=== PATIENT | male | born 1965 | race Hispanic/Latino ===

== ENCOUNTER 2024-03-07 02:24 | Emergency (ER) | payer SELFPAY ==
--- OUTSIDE RECORDS SUMMARY | 2024-03-07 02:30 | XMS REPORT | Continuity of Care Document ---
Author Name Unknown Address [address] [facility] [address] [place] [address] [facility] thconnect Address [address] [facility] 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 Ordering Clinician Indication Dosage Frequency Signature (SIG) Comments Components Source TAKE 1 TABLET DAILY. 2022-03 0-20 00:00: 00 Yes 137 Luis Mims TAKE 1 TABLET BID NEEDED 5-15 00:00: 00 07-13 00:00 :00 No 600 Luis Mims TAKE 1 TABLET DAILY. 5-15 00:00: 00 07-13 00:00 :00 No 20 Luis Mims TAKE 1 TABLET DAILY. -23 00:00: 00 07-13 00:00 :00 No 137 Luis Mims Dose Unknown 1-18 00:00: 00 Yes Luis Mims TAKE 1 TABLET DAILY. 10-08 00:00: 00 Yes 10 Luis Mims TAKE 1 TABLET BY MOUTH THREE TIMES DAILY NEEDED FOR 10 DAYS ABDOMINAL CRAMPING - 00:00: 00 Yes Luis Mims TAKE 1 TABLET BY MOUTH ONCE DAILY FOR 30 DAYS 07-10 00:00: 00 Yes Luis Mims levothyroxi ne 137 mcg tablet - 00:00: 00 Yes 1mcg Luis Mims levothyroxi ne 137 mcg tablet - 00:00: 00 No 1mcg levothyroxi ne 13 mcg capsule -25 00:00: 00 Yes 1mcg Luis Mims levothyroxi ne 13 mcg capsule 0 425 00:00: 00 No 1mcg Dose Unknown 0 3-05 00:00: 00 Yes Luis Mims Dose Unknown 0 3-05 00:00: 00 Yes Luis Mims Dose Unknown 0 3-05 00:00: 00 Yes Luis Mims Dose Unknown 0 3-05 00:00: 00 No Dose Unknown 0 3-05 00:00: 00 No Dose Unknown 0 3-05 00:00: 00 No levothyroxi ne 125 mcg tablet 0 2 00:00: 00 Yes 1mcg Luis Mims levothyroxi ne 13 mcg capsule 0 05-13 00:00: 00 Yes 1mcg Luis Mims levothyroxi ne 125 mcg tablet 0 2 00:00: 00 No 1mcg levothyroxi ne 13 mcg capsule 0 05-13 00:00: 00 No 1mcg levothyroxi ne 125 mcg tablet 0 05-07 00:00: 00 Yes 1mcg Luis Mims TAKE 1 TABLET BY MOUTH ONCE DAILY IN THE MORNING ON AN EMPTY STOMACH 1 HOUR BEFORE BREAKFAST 0 05-07 00:00: 00 Yes Luis Mims levothyroxi ne 125 mcg tablet 0 05-07 00:00: 00 No 1mcg levothyroxi ne 125 mcg tablet 2020-03 0- 00:00: 00 Yes 1mcg Luis Mims levothyroxi ne 125 mcg tablet 2020-03 0- 00:00: 00 No 1mcg hydroxyzine HCl 50 mg tablet 0 07-11 00:00: 00 Yes 1mg Luis Mims levothyroxi ne 125 mcg tablet 0 07-11 00:00: 00 Yes 1mcg Luis Mims hydroxyzine HCl 50 mg tablet 07-11 00:00: 00 No 1mg levothyroxi ne 125 mcg tablet 0 07-11 00:00: 00 No 1mcg levothyroxi ne 125 mcg tablet 2019-03 2- 00:00: 00 Yes 1mcg Luis Mims levothyroxi ne 125 mcg tablet 2019-03 2- 00:00: 00 No 1mcg levothyroxi ne 125 mcg tablet 0 11-16 00:00: 00 Yes 1mcg Luis Mims levothyroxi ne 125 mcg tablet 11-16 00:00: 00 No 1mcg levothyroxi ne 125 mcg tablet 09-22 00:00: 00 Yes 1mcg Luis Mims levothyroxi ne 125 mcg tablet 09-22 00:00: 00 No 1mcg levothyroxi ne 125 mcg tablet 06-07 00:00: 00 Yes 1mcg Luis Mims levothyroxi ne 125 mcg tablet 06-07 00:00: 00 No 1mcg levothyroxi ne 125 mcg tablet 05-11 00:00: 00 Yes 1mcg Luis Mims levothyroxi ne 125 mcg tablet 05-11 00:00: 00 No 1mcg cholecalcif ciara (vitamin D3) 1,250 mcg (50,000 unit) tablet 04-13 00:00: 00 Yes 1(50,00 0 unit) Luis Mims levothyroxi ne 137 mcg tablet 04-13 00:00: 00 Yes 1mcg Luis Mims cholecalcif ciara (vitamin D3) 1,250 mcg (50,000 unit) tablet 04-13 00:00: 00 No 1(50,00 0 unit) levothyroxi ne 137 mcg tablet 04-13 00:00: 00 No 1mcg levothyroxi ne 150 mcg tablet 2018-03 00:00: 00 Yes 1mcg Luis Mims levothyroxi ne 150 mcg tablet 2018-03 00:00: 00 No 1mcg levothyroxi ne 150 mcg tablet 2018-03 00:00: 00 Yes 1mcg Luis Mims levothyroxi ne 150 mcg tablet 2018-03 0 00:00: 00 No 1mcg levothyroxi ne 150 mcg tablet 09-15 00:00: 00 Yes 1mcg Luis Mims Vitamin D2 1,250 mcg (50,000 unit) capsule 09-15 00:00: 00 Yes 1(50,00 0 unit) Luis Mims levothyroxi ne 150 mcg tablet 09-15 00:00: 00 No 1mcg Vitamin D2 1,250 mcg (50,000 unit) capsule 09-15 00:00: 00 No 1(50,00 0 unit) hydrochloro thiazide 12.5 mg tablet 05-24 00:00: 00 Yes 1mg Luis Mims hydrochloro thiazide 12.5 mg tablet 05-24 00:00: 00 No 1mg levothyroxi ne 125 mcg tablet 05-19 00:00: 00 Yes 1mcg Luis Mims levothyroxi ne 125 mcg tablet 05-19 00:00: 00 No 1mcg cyclobenzap rine 10 mg tablet 04-09 00:00: 00 Yes 1mg Luis Mims cyclobenzap rine 10 mg tablet 04-09 00:00: 00 No 1mg levothyroxi ne 125 mcg tablet 2017-03 00:00: 00 Yes 1mcg Luis Mims levothyroxi ne 125 mcg tablet 2017-03 00:00: 00 No 1mcg levothyroxi ne 125 mcg tablet 11-23 00:00: 00 Yes 1mcg Luis Mims levothyroxi ne 125 mcg tablet 11-23 00:00: 00 No 1mcg levothyroxi ne 125 mcg tablet 10-26 00:00: 00 Yes 1mcg Luis Mims levothyroxi ne 125 mcg tablet 10-26 00:00: 00 No 1mcg prednisone 5 mg tablet 08-27 00:00: 00 Yes 1mg Luis Mims cyclobenzap rine 10 mg tablet 08-27 00:00: 00 Yes 1mg Luis Mims levothyroxi ne 125 mcg tablet 08-27 00:00: 00 Yes 1mcg Luis Mims prednisone 5 mg tablet 08-27 00:00: 00 No 1mg cyclobenzap rine 10 mg tablet 08-27 00:00: 00 No 1mg levothyroxi ne 125 mcg tablet 08-27 00:00: 00 No 1mcg levothyroxi ne 125 mcg tablet 06-02 00:00: 00 Yes 1mcg Luis Mims levothyroxi ne 125 mcg tablet 06-02 00:00: 00 No 1mcg prednisone 5 mg tablet 05-29 00:00: 00 Yes 1mg Luis Mims prednisone 5 mg tablet 05-29 00:00: 00 No 1mg levothyroxi ne 112 mcg tablet 05-14 00:00: 00 Yes 1mcg Luis Mims levothyroxi ne 112 mcg tablet 05-14 00:00: 00 No 1mcg levothyroxi ne 112 mcg tablet 05-12 00:00: 00 Yes 1mcg Luis Mims levothyroxi ne 112 mcg tablet 05-12 00:00: 00 No 1mcg ibuprofen 800 mg tablet 05-11 00:00: 00 Yes 1mg Luis Mims cyclobenzap rine 10 mg tablet 05-11 00:00: 00 Yes 1mg Luis Mims tramadol 50 mg tablet 05-11 00:00: 00 Yes 1mg Luis Mims ibuprofen 800 mg tablet 05-11 00:00: 00 No 1mg cyclobenzap rine 10 mg tablet 05-11 00:00: 00 No 1mg tramadol 50 mg tablet 05-11 00:00: 00 No 1mg levothyroxi ne 112 mcg tablet 03-20 00:00: 00 Yes 1mcg Luis Mims levothyroxi ne 112 mcg tablet 03-20 00:00: 00 No 1mcg levothyroxi ne 100 mcg tablet 2016-03 00:00: 00 Yes 1mcg Luis Mims levothyroxi ne 100 mcg tablet 2016-03 00:00: 00 No 1mcg levothyroxi ne 50 mcg tablet 2016-03 00:00: 00 Yes 1mcg Luis Mims levothyroxi ne 50 mcg tablet 2016-03 00:00: 00 No 1mcg levothyroxi ne 150 mcg tablet 2016-03 00:00: 00 Yes 1mcg Luis Mims levothyroxi ne 150 mcg tablet 2016-03 00:00: 00 No 1mcg levothyroxi ne 150 mcg tablet 08-28 00:00: 00 Yes 1mcg Luis Mims levothyroxi ne 150 mcg tablet 08-28 00:00: 00 No 1mcg levothyroxi ne 150 mcg tablet 07-18 00:00: 00 Yes 1mcg Luis Mims levothyroxi ne 150 mcg tablet 07-18 00:00: 00 No 1mcg levothyroxi ne 175 mcg tablet 04-14 00:00: 00 Yes 1mcg Luis Mims levothyroxi ne 175 mcg tablet 04-14 00:00: 00 No 1mcg levothyroxi ne 200 mcg tablet 2015-03 00:00: 00 Yes 1mcg Luis Mims levothyroxi ne 200 mcg tablet 2015-03 00:00: 00 No 1mcg levothyroxi ne 175 mcg tablet 2015-03 00:00: 00 Yes 1mcg Luis Mims levothyroxi ne 175 mcg tablet 2015-03 00:00: 00 No 1mcg levothyroxi ne 175 mcg tablet 10-06 00:00: 00 Yes 1mcg Luis Mims levothyroxi ne 175 mcg tablet 10-06 00:00: 00 No 1mcg levothyroxi ne 150 mcg tablet 10-01 00:00: 00 Yes 1mcg Luis Mims levothyroxi ne 150 mcg tablet 10-01 00:00: 00 No 1mcg levothyroxi ne 100 mcg tablet 06-14 00:00: 00 Yes 1mcg Luis Mims levothyroxi ne 100 mcg tablet 06-14 00:00: 00 No 1mcg levothyroxi ne 100 mcg tablet 11-01 00:00: 00 Yes 1mcg Luis Mims levothyroxi ne 100 mcg tablet 11-01 00:00: 00 No 1mcg Immunizations Ordered Immunization Name Filled Immunization Name Date Status Comments Source Tdap Tdap 2017-01-06 00:00:00 Completed Luis Mims Influenza, seasonal, inj Influenza, seasonal, inj 2017-01-06 00:00:00 Completed Luis Winnie Mims Tdap 2017-01-06 00:00:00 Completed Influenza, seasonal, inj 2017-01-06 00:00:00 Completed Vital Signs Vital Name Observation Time Observation Value Comments S ource BP Diastolic 2023-07-14 10:39:00 87 mm[Hg] Adilson phen F Prasanna Weight Measured 2023-07-14 10:39:00 156.20 pounds Luis F Prasanna Height Measured 2023-07-14 10:39:00 64.00 inches Luis F Prasanna Body Temperature 2023-07-14 10:39:00 98.00 degrees Luis F Prasanna Heart Rate 2023-07-14 10:39:00 77.00 /min Radha en F Prasanna Respiratory Rate 2023-07-14 10:39:00 18.00 /min Luis F Prasanna BP Systolic 2023-07-14 10:39:00 137 mm[Hg] Step hen F Prasanna BP Systolic 2023-04-06 14:56:00 149 mm[Hg] Step hen F Prasanna BP Diastolic 2023-04-06 14:56:00 103 mm[Hg] Adilson phen F Prasanna Weight Measured 2023-04-06 14:56:00 153.40 pounds Luis F Prasanna Height Measured 2023-04-06 14:56:00 64.00 inches Luis F Prasanna Body Temperature 2023-04-06 14:56:00 98.20 degrees Luis F Prasanna Heart Rate 2023-04-06 14:56:00 81.00 /min Radha en F Prasanna Respiratory Rate 2023-04-06 14:56:00 19.00 /min Luis F Prasanna BP Systolic 2023-01-01 13:29:00 140 mm[Hg] Step hen F Prasanna BP Diastolic 2023-01-01 13:29:00 85 mm[Hg] Adilson phen F Prasanna Weight Measured 2023-01-01 13:29:00 150.40 pounds Luis F Prasanna Height Measured 2023-01-01 13:29:00 64.00 inches Luis F Prasanna Body Temperature 2023-01-01 13:29:00 98.20 degrees Luis F Prasanna Heart Rate 2023-01-01 13:29:00 86.00 /min Radha en F Prasanna Respiratory Rate 2023-01-01 13:29:00 19.00 /min Luis F Prasanna BP Systolic 2022-07-28 15:39:00 153 mm[Hg] Step hen F Prasanna BP Diastolic 2022-07-28 15:39:00 95 mm[Hg] Adilson phen F Prasanna Weight Measured 2022-07-28 15:39:00 153.60 pounds Luis F Prasanna Height Measured 2022-07-28 15:39:00 64.00 inches Luis F Prasanna Body Temperature 2022-07-28 15:39:00 98.10 degrees Luis F Prasanna Heart Rate 2022-07-28 15:39:00 76.00 /min Radha en F Prasanna Respiratory Rate 2022-07-28 15:39:00 18.00 /min Luis F Prasanna BP Systolic 2022-07-28 14:52:00 153 mm[Hg] Step hen F Prasanna BP Diastolic 2022-07-28 14:52:00 95 mm[Hg] Adilson phen F Prasanna Weight Measured 2022-07-28 14:52:00 153.60 pounds Luis F Prasanna Height Measured 2022-07-28 14:52:00 64.00 inches Luis F Prasanna Body Temperature 2022-07-28 14:52:00 98.10 degrees Luis F Prasanna Heart Rate 2022-07-28 14:52:00 76.00 /min Radha en F Prasanna Respiratory Rate 2022-07-28 14:52:00 18.00 /min Luis F Prasanna BP Systolic 2022-04-04 15:58:00 161 mm[Hg] Step hen F Prasanna BP Diastolic 2022-04-04 15:58:00 103 mm[Hg] Adilson phen F Prasanna Weight Measured 2022-04-04 15:58:00 158.60 pounds Luis F Prasanna Height Measured 2022-04-04 15:58:00 64.00 inches Luis F Prasanna Body Temperature 2022-04-04 15:58:00 98.80 degrees Luis F Prasanna Heart Rate 2022-04-04 15:58:00 83.00 /min Radha en F Prasanna Respiratory Rate 2022-04-04 15:58:00 18.00 /min Luis F Prasanna BP Systolic 2021 15:36:00 153 mm[Hg] Step hen F Prasanna BP Diastolic 2021 15:36:00 97 mm[Hg] Adilson phen F Prasanna Weight Measured 2021 15:36:00 153.20 pounds Luis F Prasanna Height Measured 2021 15:36:00 64.00 inches Luis F Prasanna Body Temperature 2021 15:36:00 98.20 degrees Luis F Prasanna Heart Rate 2021 15:36:00 83.00 /min Radha en F Prasanna Respiratory Rate 2021 15:36:00 Luis F Prasanna BP Systolic 2021-07-04 17:03:00 145 mm[Hg] Step hen F Prasanna BP Diastolic 2021-07-04 17:03:00 94 mm[Hg] Adilson phen F Prasanna Weight Measured 2021-07-04 17:03:00 154.00 pounds Luis F Prasanna Height Measured 2021-07-04 17:03:00 64.00 inches Luis F Prasanna Body Temperature 2021-07-04 17:03:00 98.10 degrees Luis F Prasanna Heart Rate 2021-07-04 17:03:00 74.00 /min Radha en F Prasanna Respiratory Rate 2021-07-04 17:03:00 16.00 /min Luis F Prasanna BP Systolic 2021-05-07 17:38:00 137 mm[Hg] Step hen F Prasanna BP Diastolic 2021-05-07 17:38:00 94 mm[Hg] Adilson phen F Prasanna Weight Measured 2021-05-07 17:38:00 151.60 pounds Luis F Prasanna Height Measured 2021-05-07 17:38:00 64.00 inches Luis F Prasanna Body Temperature 2021-05-07 17:38:00 98.70 degrees Luis F Prasanna Heart Rate 2021-05-07 17:38:00 78.00 /min Radha en F Prasanna Respiratory Rate 2021-05-07 17:38:00 16.00 /min Luis F Prasanna BP Systolic 2021-01-09 16:10:00 139 mm[Hg] Step hen F Prasanna BP Diastolic 2021-01-09 16:10:00 86 mm[Hg] Adilson phen F Prasanna Weight Measured 2021-01-09 16:10:00 148.00 pounds Luisjosh Mims Height Measured 2021-01-09 16:10:00 64.00 inches Luis F Prasanna Body Temperature 2021-01-09 16:10:00 98.20 degrees Luis F Prasanna Heart Rate 2021-01-09 16:10:00 72.00 /min Radha en F Prasanna Respiratory Rate 2021-01-09 16:10:00 16.00 /min Luis F Prasanna BP Systolic 2021-01-08 16:03:00 134 mm[Hg] BP Diastolic 2021-01-08 16:03:00 91 mm[Hg] Weight Measured 2021-01-08 16:03:00 146.40 pounds Height Measured 2021-01-08 16:03:00 64.00 inches Body Temperature 2021-01-08 16:03:00 98.10 degrees Heart Rate 2021-01-08 16:03:00 78.00 /min Respiratory Rate 2021-01-08 16:03:00 16.00 /min BP Systolic 2020-07-11 15:03:00 145 mm[Hg] BP Diastolic 2020-07-11 15:03:00 96 mm[Hg] Weight Measured 2020-07-11 15:03:00 152.40 pounds Height Measured 2020-07-11 15:03:00 64.00 inches Body Temperature 2020-07-11 15:03:00 98.60 degrees Heart Rate 2020-07-11 15:03:00 85.00 /min Respiratory Rate 2020-07-11 15:03:00 17.00 /min BP Systolic 2020-02-22 08:08:00 122 mm[Hg] BP Diastolic 2020-02-22 08:08:00 86 mm[Hg] Weight Measured 2020-02-22 08:08:00 150.20 pounds Height Measured 2020-02-22 08:08:00 64.00 inches Body Temperature 2020-02-22 08:08:00 98.30 degrees Heart Rate 2020-02-22 08:08:00 73.00 /min Respiratory Rate 2020-02-22 08:08:00 16.00 /min BP Systolic 2019-11-15 16:33:00 127 mm[Hg] BP Diastolic 2019-11-15 16:33:00 82 mm[Hg] Weight Measured 2019-11-15 16:33:00 145.40 pounds Height Measured 2019-11-15 16:33:00 64.00 inches Body Temperature 2019-11-15 16:33:00 97.90 degrees Heart Rate 2019-11-15 16:33:00 79.00 /min Respiratory Rate 2019-11-15 16:33:00 16.00 /min BP Systolic 2019-09-23 08:16:00 115 mm[Hg] BP Diastolic 2019-09-23 08:16:00 78 mm[Hg] Weight Measured 2019-09-23 08:16:00 141.40 pounds Height Measured 2019-09-23 08:16:00 64.00 inches Body Temperature 2019-09-23 08:16:00 98.20 degrees Heart Rate 2019-09-23 08:16:00 72.00 /min Respiratory Rate 2019-09-23 08:16:00 16.00 /min BP Systolic 2019-05-10 15:12:00 121 mm[Hg] BP Diastolic 2019-05-10 15:12:00 79 mm[Hg] Weight Measured 2019-05-10 15:12:00 140.40 pounds Height Measured 2019-05-10 15:12:00 64.00 inches Body Temperature 2019-05-10 15:12:00 97.90 degrees Heart Rate 2019-05-10 15:12:00 78.00 /min Respiratory Rate 2019-05-10 15:12:00 Procedures Procedure Date / Time Performed Performing Clinicia n Source Ekg 2018-05-17 00:00:00 Luis Mims Plan of Care Planned Activity Planned Date Details Comments Source Goal Plan of Care Note [code = 46701-4] Goal Plan of Care Note [code = 13468-6] Goal Plan of Care Note [code = 19974-4] Goal Plan of Care Note [code = 87093-2] Goal Plan of Care Note [code = 83513-7] Goal Plan of Care Note [code = 95815-6] Goal Plan of Care Note [code = 46601-9] Goal Plan of Care Note [code = 41856-8] Goal Plan of Care Note [code = 10280-5] Goal Plan of Care Note [code = 61751-3] Goal Plan of Care Note [code = 70640-7] Goal Plan of Care Note [code = 09056-9] Goal Plan of Care Note [code = 55852-3] Goal Plan of Care Note [code = 60374-5] Goal Plan of Care Note [code = 81961-8] Goal Plan of Care Note [code = 36524-1] Goal Plan of Care Note [code = 95108-3] Goal Plan of Care Note [code = 53242-6] Goal Plan of Care Note [code = 33153-9] Goal Plan of Care Note [code = 12352-8] Goal Plan of Care Note [code = 39643-3] Goal Plan of Care Note [code = 88159-1] Goal Plan of Care Note [code = 98491-2] Goal Plan of Care Note [code = 88666-8] Goal Plan of Care Note [code = 08613-5] Goal Plan of Care Note [code = 97607-2] Goal Plan of Care Note [code = 60909-0] Goal Plan of Care Note [code = 57635-6] Goal Plan of Care Note [code = 78236-0] Encounters Start Date/Time End Date/Time Encounter Type Admission Type Attending [facility] Facility Care Department Encounter ID Source 2024-01-05 11:03:56 2024-01-05 11:03:56 Outpatient [facility] [id number] Luis F Prasanna 2023-07-14 10:38:10 2023-07-14 10:38:10 Outpatient [facility] [id number] Luis F Prasanna 2023-07-14 00:00:00 2023-07-14 00:00:00 Outpatient Visit [facility] [id number] Luis Zhou Prasanna 2023-04-06 14:55:51 2023-04-06 14:55:51 Outpatient [facility] [id number] Luis Winnie Prasanna 2023-01-01 13:25:16 2023-01-01 13:25:16 Outpatient [facility] [id number] Luis Winnie Mims 2022-08-11 13:16:05 2022-08-11 13:16:05 Outpatient [facility] [id number] Luis Mims 2022-08-04 13:34:18 2022-08-04 13:34:18 Outpatient [facility] [id number] Luis Mims 2022-07-28 14:51:14 2022-07-28 14:51:14 Outpatient [facility] [id number] Luis Mims 2022-04-04 15:50:35 2022-04-04 15:50:35 Outpatient [facility] [id number] Luis Mims 2021 00:00:00 2021 00:00:00 Outpatient Visit [id number] Results Test Description Test Time Test Comments Results Result Co mments Source Occult Blood, Fecal, [id number] 00:00:00* Test Item Value Reference Range Interpretation Comme nts Occult Blood, Fecal, [place] (jose t code = 29149-0) TNP Luis MimsTSH, THIRD [id number] 05:17:35* Test Item Value Reference Range Interpretation Comme nts TSH, THIRD GENERATION (test code = 2821) 0.847 UIU/ML 0.400-4.100 UNLESS OTHERWISE INDICATED, ALL TESTING PERFORMED AT [facility] [employer] [address] [place], [place] [address] DOG HAIR CLIPPER: TYLER BYRNES M.D. CLIA NUMBER [id number] [facility] [place]. [id number] TSH, THIRD [id number] 00:00:00* Test Item Value Reference Range Interpretation Comme nts TSH, THIRD GENERATION (test code = 2821) 0.847 UIU/ML Luis MimsHEMOGLOBIN [id number] 02:51:38* Test Item Value Reference Range Interpretation Comme nts HEMOGLOBIN A1c (test code = 42462) 5.5 % 4.2-5.6 UNLESS OTHERWISE INDICATED, ALL TESTING PERFORMED AT [facility] [employer] [address] [place], [place] [address] DOG HAIR CLIPPER: TYLER BYRNES M.D. CLIA NUMBER [id number] [facility] [place] [place]. [id number] HEMOGLOBIN [id number] 00:00:00* Test Item Value Reference Range Interpretation Comme [facility] HEMOGLOBIN A1c (test code = 25810) 5.5 % Luis MimsFOLIC [id number] 00:00:00* Test Item Value Reference Range Interpretation Comme [facility] FOLIC ACID (test code = 2695) 9.0 UG/L Luis MimsCOMPREHENSIVE METABOLIC [id number] 00:00:00* Test Item Value Reference Range Interpretation Comme nts GLUCOSE (test code = 2217) 112 MG/DL BUN (test code = 2208) 10 MG/DL CREATININE (test code = 2214) 1.16 MG/DL eGFR (2020 CKD-EPI) (test co de = 08460) 73 ML/MIN/1.73 CALC BUN/CREAT (test code = 2235) 9 RATIO SODIUM (test code = 2231) 138 MEQ/L POTASSIUM (test code = 2228) 4.1 MEQ/L CHLORIDE (test code = 2215) 100 MEQ/L CARBON DIOXIDE (test code = 2206) 20 MEQ/L CALCIUM (test code = 2209) 9.7 MG/DL PROTEIN, TOTAL (test code = 2229) 7.3 G/DL ALBUMIN (test code = 2201) 4.8 G/DL CALC GLOBULIN (test code = 2240) 2.5 G/DL CALC A/G RATIO (test code = 2234) 1.9 RATIO BILIRUBIN, TOTAL (test code = 2207) 0.4 MG/DL ALKALINE PHOSPHATASE (test code = 2204) 103 U/L AST (test code = 2218) 31 U/L ALT (test code = 2219) 37 U/L Luis MimsVITAMIN D, 25 [id number] 00:00:00* Test Item Value Reference Range Interpretation Comme [facility] VITAMIN D, 25 OH (test code = 4958) 29 NG/ML Luis MimsVITAMIN [id number] 00:00:00* Test Item Value Reference Range Interpretation Comme [facility] VITAMIN B-12 (test code = 2840) 248 PG/ML Luis MimsCBC W/AUTO [id number] 00:00:00* Test Item Value Reference Range Interpretation Comme nts WBC (test code = 1001) 5.6 K/UL RBC (test code = 1002) 4.82 M/UL HEMOGLOBIN (test code = 1003) 16.5 G/DL HEMATOCRIT (test code = 1004) 46.4 % MCV (test code = 1005) 96.3 fL MCH (test code = 1006) 34.2 PG MCHC (test code = 1007) 35.6 G/DL RDW (test code = 1038) 12.5 % NEUTROPHILS (test code = 1008) 46.6 % LYMPHOCYTES (test code = 1010) 40.9 % MONOCYTES (test code = 1011) 10.9 % EOSINOPHILS (test code = 1012) 0.7 % BASOPHILS (test code = 1013) 0.5 % IMMATURE GRANULOCYTES (test code = 1036) 0.4 % NUCLEATED RBCS (test code = 1065) 0.0 /100WBC'S PLATELET COUNT (test code = 1015) 231 K/UL ABSOLUTE NEUTROPHILS (test c ode = 1066) 2.61 K/UL ABSOLUTE LYMPHOCYTES (test c ode = 1067) 2.29 K/UL ABSOLUTE MONOCYTES (test cod e = 1068) 0.61 K/UL ABSOLUTE EOSINOPHILS (test c ode = 1040) 0.04 K/UL ABSOLUTE BASOPHILS (test cod e = 1069) 0.03 K/UL ABS IMMATURE GRANULOCYTES (t est code = 1020) 0.02 K/UL ABS NUCLEATED RBCS (test cod e = 93283) 0.00 K/UL Luis Rodriguez, THIRD [id number] 00:00:00* Test Item Value Reference Range Interpretation Comme nts TSH, THIRD GENERATION (test code = 2821) 1.500 UIU/ML Luis Rodriguez, THIRD [id number] 01:37:52* Test Item Value Reference Range Interpretation Comme nts TSH, THIRD GENERATION (test code = 2821) 1.760 UIU/ML 0.400-4.100 UNLESS OTHERWISE INDICATED, [facility] [address] [place] [id number] DOG HAIR CLIPPER: SASHA FAYE M.D. CLIA NUMBER [id number] [facility] [place]. [id number] COMPREHENSIVE METABOLIC [id number] 00:59:30* Test Item Value Reference Range Interpretation Comme nts GLUCOSE (test code = 2216) 68 MG/DL 70-99 L BUN (test code = 2207) 13 MG/DL 6-20 CREATININE (test code = 2214) 1.39 MG/DL 0.80-1.40 eGFR (2020 CKD-EPI) (test code = 01846) 59 ML/MIN/1.73 >60 L The NKF-ASN Taskforce recommends use of Cystatin C to confirm eGFR inadults at risk for CKD. [facility] offers eGFR with Cystatin C-Creatinineusing the 2020 CKD-EPI eGFR_creat-cystat equation (order code 3057) toincrease the accuracy of estimated GFR. For more information, contactyour accounting specialist or see announcement [email or web address] CALC BUN/CREAT (test code = 2234) 9 RATIO 6-28 SODIUM (test code = 2230) 139 MEQ/L 133-146 POTASSIUM (test code = 8) 4.3 MEQ/L 3.5-5.4 CHLORIDE (test code = 2215) 102 MEQ/L 95-107 CARBON DIOXIDE (test code = 6) 22 MEQ/L 19-31 CALCIUM (test code = 2209) 9.9 MG/DL 8.5-10.5 PROTEIN, TOTAL (test code = 222) 7.7 G/DL 6.1-8.3 ALBUMIN (test code = 2200) 4.6 G/DL 3.5-5.2 CALC GLOBULIN (test code = 2240) 3.1 G/DL 1.9-3.7 CALC A/G RATIO (test code = 223) 1.5 RATIO 1.0-2.6 BILIRUBIN, TOTAL (test code = 220) 0.6 MG/DL See_Comment [Automated me ssage] The system which generated this result transmitted reference range: <=1.2. The reference range was not used to interpret this result as normal/abnormal. ALKALINE PHOSPHATASE (test code = 4) 95 U/L 40-123 AST (test code = 2218) 31 U/L 9-50 ALT (test code = 2219) 38 U/L 5-50 LIPID [id number] 00:59:30* Test Item Value Reference Range Interpretation Comme nts CHOLESTEROL (test code = 2210) 213 MG/DL <200 H TRIGLYCERIDES (test code = 2232) 132 MG/DL <150 HDL CHOLESTEROL (test code = 2220) 49 MG/DL >39 CALC LDL CHOL (test code = 2237) 138 MG/DL <100 H NOTE: CALCULATED LDL IS BASED ON VARSHA-CHRISTIAN METHOD WHICHINCLUDES ADJUSTABLE TRIGLYCERIDE:VLDL CHOLESTEROL RATIO.THIS FACTOR VARIES BY MEASURED TRIGLYCERIDE AND NON-HDLCHOLESTEROL CONCENTRATIONS WITH INCREASED CALCULATED LDL SEENIN HIGHER TRIGLYCERIDE OR LOWER NON-HDL SPECIMENS. FOR MOREINFORMATION, SEE CLIENT ANNOUNCEMENT AT [email or web address] RATIO LDL/HDL (test code = 2238) 2.82 RATIO <3.55 COMPREHENSIVE METABOLIC [id number] 00:00:00* Test Item Value Reference Range Interpretation Comme nts GLUCOSE (test code = 2217) 68 MG/DL BUN (test code = 2208) 13 MG/DL CREATININE (test code = 2214) 1.39 MG/DL eGFR (2020 CKD-EPI) (test co de = 63805) 59 ML/MIN/1.73 CALC BUN/CREAT (test code = 2235) 9 RATIO SODIUM (test code = 2231) 139 MEQ/L POTASSIUM (test code = 2228) 4.3 MEQ/L CHLORIDE (test code = 2215) 102 MEQ/L CARBON DIOXIDE (test code = 2206) 22 MEQ/L CALCIUM (test code = 2209) 9.9 MG/DL PROTEIN, TOTAL (test code = 2229) 7.7 G/DL ALBUMIN (test code = 2201) 4.6 G/DL CALC GLOBULIN (test code = 2240) 3.1 G/DL CALC A/G RATIO (test code = 2234) 1.5 RATIO BILIRUBIN, TOTAL (test code = 2207) 0.6 MG/DL ALKALINE PHOSPHATASE (test code = 2204) 95 U/L AST (test code = 2218) 31 U/L ALT (test code = 2219) 38 U/L Luis Winnie AustinLIPID [id number] 00:00:00* Test Item Value Reference Range Interpretation Comme nts CHOLESTEROL (test code = 2210) 213 MG/DL TRIGLYCERIDES (test code = 2232) 132 MG/DL HDL CHOLESTEROL (test code = 2220) 49 MG/DL CALC LDL CHOL (test code = 2237) 138 MG/DL RISK RATIO LDL/HDL (test cod e = 2238) 2.82 RATIO MAHAD Gayle [id number] 00:00:00* Test Item Value Reference Range Interpretation Comme nts TSH, THIRD GENERATION (test code = 2821) 1.760 UIU/ML Luis MimsHIV 1/2 4TH GEN, RFLX [id number] 03:44:39* Test Item Value Reference Range Interpretation Comme nts HIV 1/2 4TH GEN, RFLX CONF ( test code = 3514) NON-REACTIVE NON-REACTIVE HIV AB/AG COMBO RFLX [id number] 00:00:00* Test Item Value Reference Range Interpretation Comme nts HIV 1/2 4TH GEN, RFLX CONF ( test code = 3514) NON-REACTIVE Luis Rodriguez, THIRD [id number] 03:02:16* Test Item Value Reference Range Interpretation Comme nts TSH, THIRD GENERATION (test code = 2821) 2.610 UIU/ML 0.400-4.100 UNLESS OTHERWISE INDICATED, ALL TESTING PERFORMED [facility] [address] [place] [address] DOG HAIR CLIPPER: SASHA FAYE M.D. CLIA NUMBER [id number] [facility] [place]. [id number] LIPID [id number] 01:22:51* Test Item Value Reference Range Interpretation Comme nts CHOLESTEROL (test code = 2210) 233 MG/DL <200 H TRIGLYCERIDES (test code = 2232) 105 MG/DL <150 HDL CHOLESTEROL (test code = 2220) 52 MG/DL >39 CALC LDL CHOL (test code = 2237) 159 MG/DL <100 H NOTE: CALCULATED LDL IS BASED ON VARSHA-CHRISTIAN METHOD WHICHINCLUDES ADJUSTABLE TRIGLYCERIDE:VLDL CHOLESTEROL RATIO.THIS FACTOR VARIES BY MEASURED TRIGLYCERIDE AND NON-HDLCHOLESTEROL CONCENTRATIONS WITH INCREASED CALCULATED LDL SEENIN HIGHER TRIGLYCERIDE OR LOWER NON-HDL SPECIMENS. FOR MOREINFORMATION, SEE CLIENT ANNOUNCEMENT AT [email or web address] RISK RATIO LDL/HDL (test code = 2238) 3.06 RATIO <3.55 LIPID [id number] 00:00:00* Test Item Value Reference Range Interpretation Comme nts CHOLESTEROL (test code = 2210) 233 MG/DL TRIGLYCERIDES (test code = 2232) 105 MG/DL HDL CHOLESTEROL (test code = 2220) 52 MG/DL CALC LDL CHOL (test code = 2237) 159 MG/DL RISK RATIO LDL/HDL (test cod e = 2238) 3.06 RATIO Luis [id number] 00:00:00* Test Item Value Reference Range Interpretation Comme nts TSH, THIRD GENERATION (test code = 2821) 2.610 UIU/ML Luis HernandezH, THIRD [id number] 04:51:38* Test Item Value Reference Range Interpretation Comme nts TSH, THIRD GENERATION (test code = 2821) 3.580 UIU/ML 0.400-4.100 UNLESS OTHERWISE INDICATED, ALL TESTING PERFORMED [facility] [employer] [facility] [address] [place] [address] DOG HAIR CLIPPER: SASHA FAYE M.D. CLIA NUMBER [id number] [place]. [id number] 00:00:00* Test Item Value Reference Range Interpretation Comme nts TSH, THIRD GENERATION (test code = 2821) 3.580 UIU/ML [id number] 00:00:00* Test Item Value Reference Range Interpretation Comme nts TSH, THIRD GENERATION (test code = 2821) 3.580 UIU/ML Luis HernandezH, THIRD [id number] 05:54:58* Test Item Value Reference Range Interpretation Comme nts TSH, THIRD GENERATION (test code = 2821) 5.600 UIU/ML 0.400-4.100 H UNLESS OTHERWISE INDICATED, ALL TESTING PERFORMED [facility] [address] [place] [address] DOG HAIR CLIPPER: SASHA FAYE M.D. CLIA NUMBER [id number] [place]. [id number] 00:00:00* Test Item Value Reference Range Interpretation Comme nts TSH, THIRD GENERATION (test code = 2821) 5.600 UIU/ML [id number] 00:00:00* Test Item Value Reference Range Interpretation Comme nts TSH, THIRD GENERATION (test code = 2821) 5.600 UIU/ML Luis [id number] 00:00:00* Test Item Value Reference Range Interpretation Comme nts TSH, THIRD GENERATION (test code = 2821) 2.100 UIU/ML [id number] 00:00:00* Test Item Value Reference Range Interpretation Comme nts TSH, THIRD GENERATION (test code = 2821) 2.100 UIU/ML Luis HernandezH, THIRD GENERATION [ADDED]2020-07-13 00:00:00* Test Item Value Reference Range Interpretation Comme nts TSH, THIRD GENERATION (test code = 2821) 8.400 UIU/ML TSH, THIRD GENERATION [ADDED]2020-07-13 00:00:00* Test Item Value Reference Range Interpretation Comme nts TSH, THIRD GENERATION (test code = 2821) 8.400 UIU/ML Luis [id number] 00:00:00* Test Item Value Reference Range Interpretation Comme nts TSH, THIRD GENERATION (test code = 2821) 2.860 UIU/ML [id number] 00:00:00* Test Item Value Reference Range Interpretation Comme nts TSH, THIRD GENERATION (test code = 2821) 2.860 UIU/ML Luis MimsCOMPREHENSIVE METABOLIC [id number] 00:00:00* Test Item Value Reference Range Interpretation Comme nts GLUCOSE (test code = 2217) 94 MG/DL BUN (test code = 2208) 14 MG/DL CREATININE (test code = 2214) 0.84 MG/DL eGFR AMER. (test cod e = 74945) 114 ML/MIN/1.73 eGFR NON- AMER. (test code = 90876) 99 ML/MIN/1.73 CALC BUN/CREAT (test code = 2235) 17 RATIO SODIUM (test code = 2231) 140 MEQ/L POTASSIUM (test code = 2228) 4.5 MEQ/L CHLORIDE (test code = 2215) 108 MEQ/L CARBON DIOXIDE (test code = 2206) 24 MEQ/L CALCIUM (test code = 2209) 8.7 MG/DL PROTEIN, TOTAL (test code = 2229) 6.7 G/DL ALBUMIN (test code = 2201) 4.3 G/DL CALC GLOBULIN (test code = 2240) 2.4 G/DL CALC A/G RATIO (test code = 2234) 1.8 RATIO BILIRUBIN, TOTAL (test code = 2207) 0.5 MG/DL ALKALINE PHOSPHATASE (test code = 2204) 90 U/L AST (test code = 2218) 21 U/L ALT (test code = 2219) 26 U/L [id number] 00:00:00* Test Item Value Reference Range Interpretation Comme nts TSH, THIRD GENERATION (test code = 2821) 3.450 UIU/ML VITAMIN D, 25 [id number] 00:00:00* Test Item Value Reference Range Interpretation Comme nts VITAMIN D, 25 OH (test code = 4958) 30 NG/ML VITAMIN B 12 AND FOLIC [id number] 00:00:00* Test Item Value Reference Range Interpretation Comme nts VITAMIN B-12 (test code = 2840) 345 PG/ML FOLIC ACID (test code = 2695) 6.0 UG/L CBC W/AUTO [id number] 00:00:00* Test Item Value Reference Range Interpretation Comme nts WBC (test code = 1001) 6.1 K/UL RBC (test code = 1002) 4.62 M/UL HEMOGLOBIN (test code = 1003) 15.3 G/DL HEMATOCRIT (test code = 1004) 44.1 % MCV (test code = 1005) 95.5 fL MCH (test code = 1006) 33.1 PG MCHC (test code = 1007) 34.7 G/DL RDW (test code = 1038) 13.0 % NEUTROPHILS (test code = 1008) 44.9 % LYMPHOCYTES (test code = 1010) 43.8 % MONOCYTES (test code = 1011) 9.8 % EOSINOPHILS (test code = 1012) 1.0 % BASOPHILS (test code = 1013) 0.5 % PLATELET COUNT (test code = 1015) 198 K/UL CBC W/AUTO [id number] 00:00:00* Test Item Value Reference Range Interpretation Comme nts WBC (test code = 1001) 6.1 K/UL RBC (test code = 1002) 4.62 M/UL HEMOGLOBIN (test code = 1003) 15.3 G/DL HEMATOCRIT (test code = 1004) 44.1 % MCV (test code = 1005) 95.5 fL MCH (test code = 1006) 33.1 PG MCHC (test code = 1007) 34.7 G/DL RDW (test code = 1038) 13.0 % NEUTROPHILS (test code = 1008) 44.9 % LYMPHOCYTES (test code = 1010) 43.8 % MONOCYTES (test code = 1011) 9.8 % EOSINOPHILS (test code = 1012) 1.0 % BASOPHILS (test code = 1013) 0.5 % PLATELET COUNT (test code = 1015) 198 K/UL Luis MimsCOMPREHENSIVE METABOLIC [id number] 00:00:00* Test Item Value Reference Range Interpretation Comme nts GLUCOSE (test code = 2217) 94 MG/DL BUN (test code = 2208) 14 MG/DL CREATININE (test code = 2214) 0.84 MG/DL eGFR AMER. (test cod e = 16382) 114 ML/MIN/1.73 eGFR NON- AMER. (test code = 13428) 99 ML/MIN/1.73 CALC BUN/CREAT (test code = 2235) 17 RATIO SODIUM (test code = 2231) 140 MEQ/L POTASSIUM (test code = 2228) 4.5 MEQ/L CHLORIDE (test code = 2215) 108 MEQ/L CARBON DIOXIDE (test code = 2206) 24 MEQ/L CALCIUM (test code = 2209) 8.7 MG/DL PROTEIN, TOTAL (test code = 2229) 6.7 G/DL ALBUMIN (test code = 2201) 4.3 G/DL CALC GLOBULIN (test code = 2240) 2.4 G/DL CALC A/G RATIO (test code = 2234) 1.8 RATIO BILIRUBIN, TOTAL (test code = 2207) 0.5 MG/DL ALKALINE PHOSPHATASE (test code = 2204) 90 U/L AST (test code = 2218) 21 U/L ALT (test code = 2219) 26 U/L Luis [id number] 00:00:00* Test Item Value Reference Range Interpretation Comme nts TSH, THIRD GENERATION (test code = 2821) 3.450 UIU/ML Luis MimsVITAMIN D, 25 [id number] 00:00:00* Test Item Value Reference Range Interpretation Comme nts VITAMIN D, 25 OH (test code = 4958) 30 NG/ML Luis MimsVITAMIN B 12 AND FOLIC [id number] 00:00:00* Test Item Value Reference Range Interpretation Comme nts VITAMIN B-12 (test code = 2840) 345 PG/ML FOLIC ACID (test code = 2695) 6.0 UG/L Luis [id number] 00:00:00* Test Item Value Reference Range Interpretation Comme nts TSH, THIRD GENERATION (test code = 2821) 1.510 UIU/ML Luis Zhou [id number] 00:00:00* Test Item Value Reference Range Interpretation Comme nts TSH, THIRD GENERATION (test code = 2821) 1.510 UIU/ML [id number] 00:00:00* Test Item Value Reference Range Interpretation Comme nts TSH, THIRD GENERATION (test code = 2821) 0.477 UIU/ML [id number] 00:00:00* Test Item Value Reference Range Interpretation Comme nts TSH, THIRD GENERATION (test code = 2821) 0.477 UIU/ML Luis MimsCBC W/AUTO [id number] 00:00:00* Test Item Value Reference Range Interpretation Comme nts WBC (test code = 1001) 5.1 K/UL RBC (test code = 1002) 4.58 M/UL HEMOGLOBIN (test code = 1003) 15.0 G/DL HEMATOCRIT (test code = 1004) 42.9 % MCV (test code = 1005) 93.7 fL MCH (test code = 1006) 32.8 PG MCHC (test code = 1007) 35.0 G/DL RDW (test code = 1038) 12.8 % NEUTROPHILS (test code = 1008) 43.6 % LYMPHOCYTES (test code = 1010) 44.6 % MONOCYTES (test code = 1011) 10.6 % EOSINOPHILS (test code = 1012) 0.8 % BASOPHILS (test code = 1013) 0.4 % PLATELET COUNT (test code = 1015) 223 K/UL VITAMIN D, 25 [id number] 00:00:00* Test Item Value Reference Range Interpretation Comme nts VITAMIN D, 25 OH (test code = 4958) 19 NG/ML [id number] 00:00:00* Test Item Value Reference Range Interpretation Comme nts TSH, THIRD GENERATION (test code = 2821) 0.226 UIU/ML CBC W/AUTO [id number] 00:00:00* Test Item Value Reference Range Interpretation Comme nts WBC (test code = 1001) 5.1 K/UL RBC (test code = 1002) 4.58 M/UL HEMOGLOBIN (test code = 1003) 15.0 G/DL HEMATOCRIT (test code = 1004) 42.9 % MCV (test code = 1005) 93.7 fL MCH (test code = 1006) 32.8 PG MCHC (test code = 1007) 35.0 G/DL RDW (test code = 1038) 12.8 % NEUTROPHILS (test code = 1008) 43.6 % LYMPHOCYTES (test code = 1010) 44.6 % MONOCYTES (test code = 1011) 10.6 % EOSINOPHILS (test code = 1012) 0.8 % BASOPHILS (test code = 1013) 0.4 % PLATELET COUNT (test code = 1015) 223 K/UL Luis MimsVITAMIN D, 25 [id number] 00:00:00* Test Item Value Reference Range Interpretation Comme [facility] VITAMIN D, 25 OH (test code = 4958) 19 NG/ML Luis [id number] 00:00:00* Test Item Value Reference Range Interpretation Comme [facility] TSH, THIRD GENERATION (test code = 2821) 0.226 UIU/ML Luis MimsLIPID [id number] 00:00:00* Test Item Value Reference Range Interpretation Comme nts CHOLESTEROL (test code = 2210) 199 MG/DL TRIGLYCERIDES (test code = 2232) 84 MG/DL HDL CHOLESTEROL (test code = 2220) 54 MG/DL CALC LDL CHOL (test code = 2237) 128 MG/DL RISK RATIO LDL/HDL (test cod e = 2238) 2.37 RATIO [id number] 00:00:00* Test Item Value Reference Range Interpretation Comme nts TSH, THIRD GENERATION (test code = 2821) 91.600 UIU/ML LIPID [id number] 00:00:00* Test Item Value Reference Range Interpretation Comme nts CHOLESTEROL (test code = 2210) 199 MG/DL TRIGLYCERIDES (test code = 2232) 84 MG/DL HDL CHOLESTEROL (test code = 2220) 54 MG/DL CALC LDL CHOL (test code = 2237) 128 MG/DL RISK RATIO LDL/HDL (test cod e = 2238) 2.37 RATIO Luis [id number] 00:00:00* Test Item Value Reference Range Interpretation Comme nts TSH, THIRD GENERATION (test code = 2821) 91.600 UIU/ML Luis Zhou [id number] 00:00:00* Test Item Value Reference Range Interpretation Comme nts TESTOSTERONE (test code = 2830) 585 NG/DL VITAMIN D, 25 [id number] 00:00:00* Test Item Value Reference Range Interpretation Comme nts VITAMIN D, 25 OH (test code = 4958) 25 NG/ML VITAMIN [id number] 00:00:00* Test Item Value Reference Range Interpretation Comme nts VITAMIN B-12 (test code = 2840) 317 PG/ML [id number] 00:00:00* Test Item Value Reference Range Interpretation Comme nts TSH, THIRD GENERATION (test code = 2821) 7.660 UIU/ML [id number] 00:00:00* Test Item Value Reference Range Interpretation Comme nts TESTOSTERONE (test code = 2830) 585 NG/DL Luis MimsVITAMIN D, 25 [id number] 00:00:00* Test Item Value Reference Range Interpretation Comme nts VITAMIN D, 25 OH (test code = 4958) 25 NG/ML Luis Zhou AustinVITAMIN [id number] 00:00:00* Test Item Value Reference Range Interpretation Comme nts VITAMIN B-12 (test code = 2840) 317 PG/ML Luis Zhou [id number] 00:00:00* Test Item Value Reference Range Interpretation Comme nts TSH, THIRD GENERATION (test code = 2821) 7.660 UIU/ML Luis Zhou AustinLIPID [id number] 00:00:00* Test Item Value Reference Range Interpretation Comme nts CHOLESTEROL (test code = 2210) 207 MG/DL TRIGLYCERIDES (test code = 2232) 205 MG/DL HDL CHOLESTEROL (test code = 2220) 48 MG/DL CALC LDL CHOL (test code = 2237) 118 MG/DL RISK RATIO LDL/HDL (test cod e = 2238) 2.46 RATIO CBC W/AUTO [id number] 00:00:00* Test Item Value Reference Range Interpretation Comme nts WBC (test code = 1001) 6.1 K/UL RBC (test code = 1002) 4.69 M/UL HEMOGLOBIN (test code = 1003) 15.2 G/DL HEMATOCRIT (test code = 1004) 42.5 % MCV (test code = 1005) 90.6 fL MCH (test code = 1006) 32.4 PG MCHC (test code = 1007) 35.8 G/DL RDW (test code = 1038) 12.6 % NEUTROPHILS (test code = 1008) 50.4 % LYMPHOCYTES (test code = 1010) 39.9 % MONOCYTES (test code = 1011) 8.3 % EOSINOPHILS (test code = 1012) 0.7 % BASOPHILS (test code = 1013) 0.7 % PLATELET COUNT (test code = 1015) 241 K/UL [id number] 00:00:00* Test Item Value Reference Range Interpretation Comme nts TSH, THIRD GENERATION (test code = 2821) 2.150 UIU/ML COMPREHENSIVE METABOLIC [id number] 00:00:00* Test Item Value Reference Range Interpretation Comme nts GLUCOSE (test code = 2217) 87 MG/DL BUN (test code = 2208) 10 MG/DL CREATININE (test code = 2214) 0.88 MG/DL eGFR AMER. (test cod e = 08787) 114 ML/MIN/1.73 eGFR NON- AMER. (test code = 54036) 98 ML/MIN/1.73 CALC BUN/CREAT (test code = 2235) 11 RATIO SODIUM (test code = 2231) 141 MEQ/L POTASSIUM (test code = 2228) 4.3 MEQ/L CHLORIDE (test code = 2215) 101 MEQ/L CARBON DIOXIDE (test code = 2206) 26 MEQ/L CALCIUM (test code = 2209) 9.3 MG/DL PROTEIN, TOTAL (test code = 2229) 7.5 G/DL ALBUMIN (test code = 2201) 4.8 G/DL CALC GLOBULIN (test code = 2240) 2.7 G/DL CALC A/G RATIO (test code = 2234) 1.8 RATIO BILIRUBIN, TOTAL (test code = 2207) 0.3 MG/DL ALKALINE PHOSPHATASE (test code = 2204) 85 U/L AST (test code = 2218) 19 U/L ALT (test code = 2219) 23 U/L LIPID [id number] 00:00:00* Test Item Value Reference Range Interpretation Comme nts CHOLESTEROL (test code = 2210) 207 MG/DL TRIGLYCERIDES (test code = 2232) 205 MG/DL HDL CHOLESTEROL (test code = 2220) 48 MG/DL CALC LDL CHOL (test code = 2237) 118 MG/DL RISK RATIO LDL/HDL (test cod e = 2238) 2.46 RATIO Luis Zhou PrasannaCBC W/AUTO [id number] 00:00:00* Test Item Value Reference Range Interpretation Comme nts WBC (test code = 1001) 6.1 K/UL RBC (test code = 1002) 4.69 M/UL HEMOGLOBIN (test code = 1003) 15.2 G/DL HEMATOCRIT (test code = 1004) 42.5 % MCV (test code = 1005) 90.6 fL MCH (test code = 1006) 32.4 PG MCHC (test code = 1007) 35.8 G/DL RDW (test code = 1038) 12.6 % NEUTROPHILS (test code = 1008) 50.4 % LYMPHOCYTES (test code = 1010) 39.9 % MONOCYTES (test code = 1011) 8.3 % EOSINOPHILS (test code = 1012) 0.7 % BASOPHILS (test code = 1013) 0.7 % PLATELET COUNT (test code = 1015) 241 K/UL Luis Zhou [id number] 00:00:00* Test Item Value Reference Range Interpretation Comme nts TSH, THIRD GENERATION (test code = 2821) 2.150 UIU/ML Luis Zhou PrasannaCOMPREHENSIVE METABOLIC [id number] 00:00:00* Test Item Value Reference Range Interpretation Comme nts GLUCOSE (test code = 2217) 87 MG/DL BUN (test code = 2208) 10 MG/DL CREATININE (test code = 2214) 0.88 MG/DL eGFR AMER. (test cod e = 54065) 114 ML/MIN/1.73 eGFR NON- AMER. (test code = 10631) 98 ML/MIN/1.73 CALC BUN/CREAT (test code = 2235) 11 RATIO SODIUM (test code = 2231) 141 MEQ/L POTASSIUM (test code = 2228) 4.3 MEQ/L CHLORIDE (test code = 2215) 101 MEQ/L CARBON DIOXIDE (test code = 2206) 26 MEQ/L CALCIUM (test code = 2209) 9.3 MG/DL PROTEIN, TOTAL (test code = 2229) 7.5 G/DL ALBUMIN (test code = 2201) 4.8 G/DL CALC GLOBULIN (test code = 2240) 2.7 G/DL CALC A/G RATIO (test code = 2234) 1.8 RATIO BILIRUBIN, TOTAL (test code = 2207) 0.3 MG/DL ALKALINE PHOSPHATASE (test code = 2204) 85 U/L AST (test code = 2218) 19 U/L ALT (test code = 2219) 23 U/L Luis [id number] 00:00:00* Test Item Value Reference Range Interpretation Comme nts TSH, THIRD GENERATION (test code = 2821) 1.890 UIU/ML LIPID [id number] 00:00:00* Test Item Value Reference Range Interpretation Comme nts CHOLESTEROL (test code = 2210) 227 MG/DL TRIGLYCERIDES (test code = 2232) 90 MG/DL HDL CHOLESTEROL (test code = 2220) 54 MG/DL CALC LDL CHOL (test code = 2237) 155 MG/DL RISK RATIO LDL/HDL (test cod e = 2238) 2.87 RATIO [id number] 00:00:00* Test Item Value Reference Range Interpretation Comme nts TSH, THIRD GENERATION (test code = 2821) 1.890 UIU/ML Luis MimsLIPID [id number] 00:00:00* Test Item Value Reference Range Interpretation Comme nts CHOLESTEROL (test code = 2210) 227 MG/DL TRIGLYCERIDES (test code = 2232) 90 MG/DL HDL CHOLESTEROL (test code = 2220) 54 MG/DL CALC LDL CHOL (test code = 2237) 155 MG/DL RISK RATIO LDL/HDL (test cod e = 2238) 2.87 RATIO Luis MimsCBC W/AUTO [id number] 00:00:00* Test Item Value Reference Range Interpretation Comme nts WBC (test code = 1001) 6.8 K/UL RBC (test code = 1002) 4.33 M/UL HEMOGLOBIN (test code = 1003) 14.0 G/DL HEMATOCRIT (test code = 1004) 40.0 % MCV (test code = 1005) 92.4 fL MCH (test code = 1006) 32.3 PG MCHC (test code = 1007) 35.0 G/DL RDW (test code = 1038) 12.6 % NEUTROPHILS (test code = 1008) 47.5 % LYMPHOCYTES (test code = 1010) 43.5 % MONOCYTES (test code = 1011) 8.0 % EOSINOPHILS (test code = 1012) 0.6 % BASOPHILS (test code = 1013) 0.4 % PLATELET COUNT (test code = 1015) 219 K/UL [id number] 00:00:00* Test Item Value Reference Range Interpretation Comme nts TSH, THIRD GENERATION (test code = 2821) 1.840 UIU/ML VITAMIN D, 25 [id number] 00:00:00* Test Item Value Reference Range Interpretation Comme nts VITAMIN D, 25 OH (test code = 4958) 22 NG/ML COMPREHENSIVE METABOLIC [id number] 00:00:00* Test Item Value Reference Range Interpretation Comme nts GLUCOSE (test code = 2217) 79 MG/DL BUN (test code = 2208) 13 MG/DL CREATININE (test code = 2214) 0.95 MG/DL eGFR AMER. (test cod e = 95081) 105 ML/MIN/1.73 eGFR NON- AMER. (test code = 54353) 91 ML/MIN/1.73 CALC BUN/CREAT (test code = 2235) 14 RATIO SODIUM (test code = 2231) 140 MEQ/L POTASSIUM (test code = 2228) 4.3 MEQ/L CHLORIDE (test code = 2215) 100 MEQ/L CARBON DIOXIDE (test code = 2206) 27 MEQ/L CALCIUM (test code = 2209) 9.5 MG/DL PROTEIN, TOTAL (test code = 2229) 7.3 G/DL ALBUMIN (test code = 2201) 4.4 G/DL CALC GLOBULIN (test code = 2240) 2.9 G/DL CALC A/G RATIO (test code = 2234) 1.5 RATIO BILIRUBIN, TOTAL (test code = 2207) 0.3 MG/DL ALKALINE PHOSPHATASE (test code = 2204) 85 U/L AST (test code = 2218) 21 U/L ALT (test code = 2219) 21 U/L COMPREHENSIVE METABOLIC [id number] 00:00:00* Test Item Value Reference Range Interpretation Comme nts GLUCOSE (test code = 2217) 79 MG/DL BUN (test code = 2208) 13 MG/DL CREATININE (test code = 2214) 0.95 MG/DL eGFR AMER. (test cod e = 58313) 105 ML/MIN/1.73 eGFR NON- AMER. (test code = 12268) 91 ML/MIN/1.73 CALC BUN/CREAT (test code = 2235) 14 RATIO SODIUM (test code = 2231) 140 MEQ/L POTASSIUM (test code = 2228) 4.3 MEQ/L CHLORIDE (test code = 2215) 100 MEQ/L CARBON DIOXIDE (test code = 2206) 27 MEQ/L CALCIUM (test code = 2209) 9.5 MG/DL PROTEIN, TOTAL (test code = 2229) 7.3 G/DL ALBUMIN (test code = 2201) 4.4 G/DL CALC GLOBULIN (test code = 2240) 2.9 G/DL CALC A/G RATIO (test code = 2234) 1.5 RATIO BILIRUBIN, TOTAL (test code = 2207) 0.3 MG/DL ALKALINE PHOSPHATASE (test code = 2204) 85 U/L AST (test code = 2218) 21 U/L ALT (test code = 2219) 21 U/L [facility] [id number] 00:00:00* Test Item Value Reference Range Interpretation Comme nts WBC (test code = 1001) 6.8 K/UL RBC (test code = 1002) 4.33 M/UL HEMOGLOBIN (test code = 1003) 14.0 G/DL HEMATOCRIT (test code = 1004) 40.0 % MCV (test code = 1005) 92.4 fL MCH (test code = 1006) 32.3 PG MCHC (test code = 1007) 35.0 G/DL RDW (test code = 1038) 12.6 % NEUTROPHILS (test code = 1008) 47.5 % LYMPHOCYTES (test code = 1010) 43.5 % MONOCYTES (test code = 1011) 8.0 % EOSINOPHILS (test code = 1012) 0.6 % BASOPHILS (test code = 1013) 0.4 % PLATELET COUNT (test code = 1015) 219 K/UL Luis Zhou [id number] 00:00:00* Test Item Value Reference Range Interpretation Comme nts TSH, THIRD GENERATION (test code = 2821) 1.840 UIU/ML Luis MimsVITAMIN D, 25 [id number] 00:00:00* Test Item Value Reference Range Interpretation Comme nts VITAMIN D, 25 OH (test code = 4958) 22 NG/ML Luis Zhou [id number] 00:00:00* Test Item Value Reference Range Interpretation Comme nts TSH, THIRD GENERATION (test code = 2821) 3.090 UIU/ML [id number] 00:00:00* Test Item Value Reference Range Interpretation Comme nts TSH, THIRD GENERATION (test code = 2821) 3.090 UIU/ML Luis Zhou [id number] 00:00:00* Test Item Value Reference Range Interpretation Comme nts TSH (test code = 2821) 5.020 UIU/ML Luis Zhou [id number] 00:00:00* Test Item Value Reference Range Interpretation Comme nts TSH (test code = 2821) 5.020 UIU/ML [id number] 00:00:00* Test Item Value Reference Range Interpretation Comme nts TSH (test code = 2821) 5.800 UIU/ML [id number] 00:00:00* Test Item Value Reference Range Interpretation Comme nts TSH (test code = 2821) 5.800 UIU/ML Luis Zhou [id number] 00:00:00* Test Item Value Reference Range Interpretation Comme nts TSH (test code = 2821) 5.720 UIU/ML [id number] 00:00:00* Test Item Value Reference Range Interpretation Comme nts TSH (test code = 2821) 5.720 UIU/ML Luis [id number] 00:00:00* Test Item Value Reference Range Interpretation Comme nts TSH (test code = 2821) 0.338 UIU/ML [id number] 00:00:00* Test Item Value Reference Range Interpretation Comme nts TSH (test code = 2821) 0.338 UIU/ML Luis MimsCBC W/AUTO [id number] 00:00:00* Test Item Value Reference Range Interpretation Comme nts WBC (test code = 1001) 4.8 K/UL RBC (test code = 1002) 4.49 M/UL HEMOGLOBIN (test code = 1003) 14.6 G/DL HEMATOCRIT (test code = 1004) 42.5 % MCV (test code = 1005) 94.7 fL MCH (test code = 1006) 32.5 PG MCHC (test code = 1007) 34.4 G/DL RDW (test code = 1038) 13.0 % NEUTROPHILS (test code = 1008) 47.9 % LYMPHOCYTES (test code = 1010) 41.5 % MONOCYTES (test code = 1011) 9.2 % EOSINOPHILS (test code = 1012) 0.8 % BASOPHILS (test code = 1013) 0.6 % PLATELET COUNT (test code = 1015) 206 K/UL COMPREHENSIVE METABOLIC [id number] 00:00:00* Test Item Value Reference Range Interpretation Comme nts GLUCOSE (test code = 2217) 93 MG/DL BUN (test code = 2208) 10 MG/DL CREATININE (test code = 2214) 0.94 MG/DL eGFR AMER. (test cod e = 12908) 108 ML/MIN/1.73 eGFR NON- AMER. (test code = 07764) 93 ML/MIN/1.73 CALC BUN/CREAT (test code = 2235) 11 RATIO SODIUM (test code = 2231) 140 MEQ/L POTASSIUM (test code = 2228) 4.7 MEQ/L CHLORIDE (test code = 2215) 102 MEQ/L CARBON DIOXIDE (test code = 2206) 22 MEQ/L CALCIUM (test code = 2209) 9.3 MG/DL PROTEIN, TOTAL (test code = 2229) 6.9 G/DL ALBUMIN (test code = 2201) 4.2 G/DL CALC GLOBULIN (test code = 2240) 2.7 G/DL CALC A/G RATIO (test code = 2234) 1.6 RATIO BILIRUBIN, TOTAL (test code = 2207) 0.3 MG/DL ALKALINE PHOSPHATASE (test code = 2204) 90 U/L AST (test code = 2218) 18 U/L ALT (test code = 2219) 20 U/L LIPID [id number] 00:00:00* Test Item Value Reference Range Interpretation Comme nts CHOLESTEROL (test code = 2210) 207 MG/DL TRIGLYCERIDES (test code = 2232) 96 MG/DL HDL CHOLESTEROL (test code = 2220) 59 MG/DL CALC LDL CHOL (test code = 2237) 129 MG/DL RISK RATIO LDL/HDL (test cod e = 2238) 2.18 RATIO THYROID II PROFILE (T3U, T4, T7, TSH)2016-08-29 00:00:00* Test Item Value Reference Range Interpretation Comme nts T3 UPTAKE (test code = 2817) 34.8 % T4 (THYROXINE) (test code = 2819) 7.5 UG/DL CALCULATED T7 (FTI) (test co de = 2820) 2.61 TSH (test code = 2821) 0.477 UIU/ML PSA, [id number] 00:00:00* Test Item Value Reference Range Interpretation Comme nts PSA, TOTAL (test code = 2606) 0.50 NG/ML HEMOGLOBIN [id number] 00:00:00* Test Item Value Reference Range Interpretation Comme nts HEMOGLOBIN A1c (test code = 80389) 5.4 % CBC W/AUTO [id number] 00:00:00* Test Item Value Reference Range Interpretation Comme nts WBC (test code = 1001) 4.8 K/UL RBC (test code = 1002) 4.49 M/UL HEMOGLOBIN (test code = 1003) 14.6 G/DL HEMATOCRIT (test code = 1004) 42.5 % MCV (test code = 1005) 94.7 fL MCH (test code = 1006) 32.5 PG MCHC (test code = 1007) 34.4 G/DL RDW (test code = 1038) 13.0 % NEUTROPHILS (test code = 1008) 47.9 % LYMPHOCYTES (test code = 1010) 41.5 % MONOCYTES (test code = 1011) 9.2 % EOSINOPHILS (test code = 1012) 0.8 % BASOPHILS (test code = 1013) 0.6 % PLATELET COUNT (test code = 1015) 206 K/UL Luis MimsCOMPREHENSIVE METABOLIC [id number] 00:00:00* Test Item Value Reference Range Interpretation Comme nts GLUCOSE (test code = 2217) 93 MG/DL BUN (test code = 2208) 10 MG/DL CREATININE (test code = 2214) 0.94 MG/DL eGFR AMER. (test cod e = 12655) 108 ML/MIN/1.73 eGFR NON- AMER. (test code = 50324) 93 ML/MIN/1.73 CALC BUN/CREAT (test code = 2235) 11 RATIO SODIUM (test code = 2231) 140 MEQ/L POTASSIUM (test code = 2228) 4.7 MEQ/L CHLORIDE (test code = 2215) 102 MEQ/L CARBON DIOXIDE (test code = 2206) 22 MEQ/L CALCIUM (test code = 2209) 9.3 MG/DL PROTEIN, TOTAL (test code = 2229) 6.9 G/DL ALBUMIN (test code = 2201) 4.2 G/DL CALC GLOBULIN (test code = 2240) 2.7 G/DL CALC A/G RATIO (test code = 2234) 1.6 RATIO BILIRUBIN, TOTAL (test code = 2207) 0.3 MG/DL ALKALINE PHOSPHATASE (test code = 2204) 90 U/L AST (test code = 2218) 18 U/L ALT (test code = 2219) 20 U/L Luis Zhou AustinLIPID [id number] 00:00:00* Test Item Value Reference Range Interpretation Comme nts CHOLESTEROL (test code = 2210) 207 MG/DL TRIGLYCERIDES (test code = 2232) 96 MG/DL HDL CHOLESTEROL (test code = 2220) 59 MG/DL CALC LDL CHOL (test code = 2237) 129 MG/DL RISK RATIO LDL/HDL (test cod e = 2238) 2.18 RATIO Luis MimsTHYROID II PROFILE (T3U, T4, T7, TSH)2016-08-29 00:00:00* Test Item Value Reference Range Interpretation Comme nts T3 UPTAKE (test code = 2817) 34.8 % T4 (THYROXINE) (test code = 2819) 7.5 UG/DL CALCULATED T7 (FTI) (test co de = 2820) 2.61 TSH (test code = 2821) 0.477 UIU/ML Luis MimsPSA, [id number] 00:00:00* Test Item Value Reference Range Interpretation Comme nts PSA, TOTAL (test code = 2606) 0.50 NG/ML Luis MimsHEMOGLOBIN [id number] 00:00:00* Test Item Value Reference Range Interpretation Comme nts HEMOGLOBIN A1c (test code = 54237) 5.4 % Luis MimsTHYROID II PROFILE (T3U, T4, T7, TSH)2016-04-12 00:00:00* Test Item Value Reference Range Interpretation Comme nts T3 UPTAKE (test code = 2817) 37.0 % T4 (THYROXINE) (test code = 2819) 9.8 UG/DL CALCULATED T7 (FTI) (test co de = 2820) 3.63 TSH (test code = 2821) 0.1 UIU/ML THYROID II PROFILE (T3U, T4, T7, TSH)2016-04-12 00:00:00* Test Item Value Reference Range Interpretation Comme nts T3 UPTAKE (test code = 2817) 37.0 % T4 (THYROXINE) (test code = 2819) 9.8 UG/DL CALCULATED T7 (FTI) (test co de = 2820) 3.63 TSH (test code = 2821) 0.1 UIU/ML Luis MimsLIPID [id number] 00:00:00* Test Item Value Reference Range Interpretation Comme nts CHOLESTEROL (test code = 2210) 248 MG/DL TRIGLYCERIDES (test code = 2232) 149 MG/DL HDL CHOLESTEROL (test code = 2220) 61 MG/DL CALC LDL CHOL (test code = 2237) 157 MG/DL RISK RATIO LDL/HDL (test cod e = 2238) 2.58 RATIO CBC W/AUTO [id number] 00:00:00* Test Item Value Reference Range Interpretation Comme nts WBC (test code = 1001) 5.6 K/UL RBC (test code = 1002) 4.53 M/UL HEMOGLOBIN (test code = 1003) 14.8 G/DL HEMATOCRIT (test code = 1004) 41.7 % MCV (test code = 1005) 92.1 fL MCH (test code = 1006) 32.7 PG MCHC (test code = 1007) 35.5 G/DL RDW (test code = 1038) 12.7 % NEUTROPHILS (test code = 1008) 43.0 % LYMPHOCYTES (test code = 1010) 46.8 % MONOCYTES (test code = 1011) 7.3 % EOSINOPHILS (test code = 1012) 2.0 % BASOPHILS (test code = 1013) 0.9 % PLATELET COUNT (test code = 1015) 256 K/UL HEMOGLOBIN [id number] 00:00:00* Test Item Value Reference Range Interpretation Comme nts HEMOGLOBIN A1c (test code = 82419) 5.2 % [id number] 00:00:00* Test Item Value Reference Range Interpretation Comme nts TSH (test code = 2821) 46.2 UIU/ML PSA, [id number] 00:00:00* Test Item Value Reference Range Interpretation Comme nts PSA, TOTAL (test code = 2606) 0.40 NG/ML COMPREHENSIVE METABOLIC [id number] 00:00:00* Test Item Value Reference Range Interpretation Comme nts GLUCOSE (test code = 2217) 89 MG/DL BUN (test code = 2208) 12 MG/DL CREATININE (test code = 2214) 1.17 MG/DL eGFR AMER. (test cod e = 42925) 83 ML/MIN/1.73 eGFR NON- AMER. (test code = 20380) 72 ML/MIN/1.73 CALC BUN/CREAT (test code = 2235) 10 RATIO SODIUM (test code = 2231) 141 MEQ/L POTASSIUM (test code = 2228) 4.5 MEQ/L CHLORIDE (test code = 2215) 104 MEQ/L CARBON DIOXIDE (test code = 2206) 24 MEQ/L CALCIUM (test code = 2209) 9.4 MG/DL PROTEIN, TOTAL (test code = 2229) 7.3 G/DL ALBUMIN (test code = 2201) 4.3 G/DL CALC GLOBULIN (test code = 2240) 3.0 G/DL CALC A/G RATIO (test code = 2234) 1.4 RATIO BILIRUBIN, TOTAL (test code = 2207) 0.3 MG/DL ALKALINE PHOSPHATASE (test code = 2204) 91 U/L AST (test code = 2218) 21 U/L ALT (test code = 2219) 23 U/L COMPREHENSIVE METABOLIC [id number] 00:00:00* Test Item Value Reference Range Interpretation Comme nts GLUCOSE (test code = 2217) 89 MG/DL BUN (test code = 2208) 12 MG/DL CREATININE (test code = 2214) 1.17 MG/DL eGFR AMER. (test cod e = 27433) 83 ML/MIN/1.73 eGFR NON- AMER. (test code = 97564) 72 ML/MIN/1.73 CALC BUN/CREAT (test code = 2235) 10 RATIO SODIUM (test code = 2231) 141 MEQ/L POTASSIUM (test code = 2228) 4.5 MEQ/L CHLORIDE (test code = 2215) 104 MEQ/L CARBON DIOXIDE (test code = 2206) 24 MEQ/L CALCIUM (test code = 2209) 9.4 MG/DL PROTEIN, TOTAL (test code = 2229) 7.3 G/DL ALBUMIN (test code = 2201) 4.3 G/DL CALC GLOBULIN (test code = 2240) 3.0 G/DL CALC A/G RATIO (test code = 2234) 1.4 RATIO BILIRUBIN, TOTAL (test code = 2207) 0.3 MG/DL ALKALINE PHOSPHATASE (test code = 2204) 91 U/L AST (test code = 2218) 21 U/L ALT (test code = 2219) 23 U/L Luis MimsLIPID [id number] 00:00:00* Test Item Value Reference Range Interpretation Comme nts CHOLESTEROL (test code = 2210) 248 MG/DL TRIGLYCERIDES (test code = 2232) 149 MG/DL HDL CHOLESTEROL (test code = 2220) 61 MG/DL CALC LDL CHOL (test code = 2237) 157 MG/DL RISK RATIO LDL/HDL (test cod e = 2238) 2.58 RATIO Luis MimsCBC W/AUTO [id number] 00:00:00* Test Item Value Reference Range Interpretation Comme nts WBC (test code = 1001) 5.6 K/UL RBC (test code = 1002) 4.53 M/UL HEMOGLOBIN (test code = 1003) 14.8 G/DL HEMATOCRIT (test code = 1004) 41.7 % MCV (test code = 1005) 92.1 fL MCH (test code = 1006) 32.7 PG MCHC (test code = 1007) 35.5 G/DL RDW (test code = 1038) 12.7 % NEUTROPHILS (test code = 1008) 43.0 % LYMPHOCYTES (test code = 1010) 46.8 % MONOCYTES (test code = 1011) 7.3 % EOSINOPHILS (test code = 1012) 2.0 % BASOPHILS (test code = 1013) 0.9 % PLATELET COUNT (test code = 1015) 256 K/UL Luis MimsHEMOGLOBIN [id number] 00:00:00* Test Item Value Reference Range Interpretation Comme nts HEMOGLOBIN A1c (test code = 04284) 5.2 % Luis Zhou [id number] 00:00:00* Test Item Value Reference Range Interpretation Comme nts TSH (test code = 2821) 46.2 UIU/ML Luis MimsPSA, [id number] 00:00:00* Test Item Value Reference Range Interpretation Comme nts PSA, TOTAL (test code = 2606) 0.40 NG/ML Luis MimsTHYROID II PROFILE (T3U, T4, T7, TSH)2015-10-06 00:00:00* Test Item Value Reference Range Interpretation Comme nts T3 UPTAKE (test code = 2817) 30.8 % T4 (THYROXINE) (test code = 2819) 6.4 UG/DL CALCULATED T7 (FTI) (test co de = 2820) 1.97 TSH (test code = 2821) 22.9 UIU/ML Luis MimsTHYROID II PROFILE (T3U, T4, T7, TSH)2015-10-06 00:00:00* Test Item Value Reference Range Interpretation Comme nts T3 UPTAKE (test code = 2817) 30.8 % T4 (THYROXINE) (test code = 2819) 6.4 UG/DL CALCULATED T7 (FTI) (test co de = 2820) 1.97 TSH (test code = 2821) 22.9 UIU/ML [id number] 00:00:00* Test Item Value Reference Range Interpretation Comme nts TSH (test code = 2821) 19.6 UIU/ML CBC W/AUTO [id number] 00:00:00* Test Item Value Reference Range Interpretation Comme nts WBC (test code = 1001) 6.0 K/UL RBC (test code = 1002) 4.40 M/UL HEMOGLOBIN (test code = 1003) 14.0 G/DL HEMATOCRIT (test code = 1004) 41.5 % MCV (test code = 1005) 94.3 fL MCH (test code = 1006) 31.8 PG MCHC (test code = 1007) 33.7 G/DL RDW (test code = 1038) 13.7 % NEUTROPHILS (test code = 1008) 47 % LYMPHOCYTES (test code = 1010) 43 % MONOCYTES (test code = 1011) 8 % EOSINOPHILS (test code = 1012) 2 % BASOPHILS (test code = 1013) 1 % PLATELET COUNT (test code = 1015) 250 K/UL [id number] 00:00:00* Test Item Value Reference Range Interpretation Comme nts TSH (test code = 2821) 19.6 UIU/ML Luis Zhou PrasannaCBC W/AUTO [id number] 00:00:00* Test Item Value Reference Range Interpretation Comme nts WBC (test code = 1001) 6.0 K/UL RBC (test code = 1002) 4.40 M/UL HEMOGLOBIN (test code = 1003) 14.0 G/DL HEMATOCRIT (test code = 1004) 41.5 % MCV (test code = 1005) 94.3 fL MCH (test code = 1006) 31.8 PG MCHC (test code = 1007) 33.7 G/DL RDW (test code = 1038) 13.7 % NEUTROPHILS (test code = 1008) 47 % LYMPHOCYTES (test code = 1010) 43 % MONOCYTES (test code = 1011) 8 % EOSINOPHILS (test code = 1012) 2 % BASOPHILS (test code = 1013) 1 % PLATELET COUNT (test code = 1015) 250 K/UL Luis Zhou PrasannaTHYROID II PROFILE (T3U, T4, T7, TSH)2014-11-01 00:00:00* Test Item Value Reference Range Interpretation Comme nts T3 UPTAKE (test code = 2817) 23.6 % T4 (THYROXINE) (test code = 2819) 2.7 UG/DL CALCULATED T7 (FTI) (test co de = 2820) 0.64 TSH (test code = 2821) 46.0 UIU/ML THYROID II PROFILE (T3U, T4, T7, TSH)2014-11-01 00:00:00* Test Item Value Reference Range Interpretation Comme nts T3 UPTAKE (test code = 2817) 23.6 % T4 (THYROXINE) (test code = 2819) 2.7 UG/DL CALCULATED T7 (FTI) (test co de = 2820) 0.64 TSH (test code = 2821) 46.0 UIU/ML Luis Zhou PrasannaCBC W/AUTO [id number] 00:00:00* Test Item Value Reference Range Interpretation Comme nts WBC (test code = 1001) 6.8 K/UL RBC (test code = 1002) 4.72 M/UL HEMOGLOBIN (test code = 1003) 15.0 G/DL HEMATOCRIT (test code = 1004) 44.7 % MCV (test code = 1005) 94.7 fL MCH (test code = 1006) 31.8 PG MCHC (test code = 1007) 33.6 G/DL RDW (test code = 1038) 13.7 % NEUTROPHILS (test code = 1008) 60 % LYMPHOCYTES (test code = 1010) 30 % MONOCYTES (test code = 1011) 8 % EOSINOPHILS (test code = 1012) 2 % BASOPHILS (test code = 1013) % PLATELET COUNT (test code = 1015) 261 K/UL THYROID II PROFILE (T3U, T4, T7, TSH)2014-09-29 00:00:00* Test Item Value Reference Range Interpretation Comme nts T3 UPTAKE (test code = 2817) 30.1 % T4 (THYROXINE) (test code = 2819) 8.6 UG/DL CALCULATED T7 (FTI) (test co de = 2820) 2.59 TSH (test code = 2821) 0.1 UIU/ML CBC W/AUTO [id number] 00:00:00* Test Item Value Reference Range Interpretation Comme nts WBC (test code = 1001) 6.8 K/UL RBC (test code = 1002) 4.72 M/UL HEMOGLOBIN (test code = 1003) 15.0 G/DL HEMATOCRIT (test code = 1004) 44.7 % MCV (test code = 1005) 94.7 fL MCH (test code = 1006) 31.8 PG MCHC (test code = 1007) 33.6 G/DL RDW (test code = 1038) 13.7 % NEUTROPHILS (test code = 1008) 60 % LYMPHOCYTES (test code = 1010) 30 % MONOCYTES (test code = 1011) 8 % EOSINOPHILS (test code = 1012) 2 % PLATELET COUNT (test code = 1015) 261 K/UL Luis MimsTHYROID II PROFILE (T3U, T4, T7, TSH)2014-09-29 00:00:00* Test Item Value Reference Range Interpretation Comme nts T3 UPTAKE (test code = 2817) 30.1 % T4 (THYROXINE) (test code = 2819) 8.6 UG/DL CALCULATED T7 (FTI) (test co de = 2820) 2.59 TSH (test code = 2821) 0.1 UIU/ML Luis Mims
[2024-03-07 03:16] LABS: Absolute Lymphocytes (CBC) 1.2 K/uL (0.7-4.9); Absolute Monocytes 0.5 K/uL (0.1-1.3); Absolute Neutrophil 3.2 K/uL (1.8-8.0); Basophils % 0.4 % (0-1.3); Eosinophils % 0.9 % (0-4.4); Hematocrit 46.8 % (39.6-49.0); Hemoglobin 15.9 g/dL (13.6-17.9); Lymphocytes % 25.2 % (15.3-44.8); MCH 34.9 pg (27.0-35.0); MCHC 33.9 g/dL (32.0-36.0); MCV 103.1 fL (80-100); MPV 7.2 fL (7.6-11.3); Neutrophils % 63.5 % (41.7-73.7); Platelets 231 thou/uL (152-406); RBC Red Blood Cell Count 4.54 M/uL (4.33-5.43); Red Cell Distribution Width 13.9 % (12.1-15.2)
[2024-03-07 03:23] LABS: PT Prothrombin Time 11.3 SECONDS (9.4-12.5); PTT, Activated Partial Thromb 33.2 SECONDS (24.3-36.9); Protime INR 1.01
[2024-03-07] MEDS ORDERED: ONDANSETRON 4 MG/2 ML VIAL ONE (03:43)
[2024-03-07] MEDS ORDERED: MORPHINE 4 MG/ML SYR ONE ×2 (03:44→05:26)
--- NOTE | 2024-03-07 04:08 | RAD REPORT ---
EXAM DESCRIPTION: Extremity Venous Uni Ltd RadLex: US EXTREMITY VEINS UNILATERAL CLINICAL HISTORY: 58 years Male; PAIN TECHNIQUE: Spectral analysis and color/grayscale sonographic images of the left leg were obtained utilizing a hi gh-frequency linear array transducer supplemented with color Doppler, compression and augmentation techniques. COMPARISON: None. FINDINGS: Common femoral: normal Greater saphenous: normal Superficial femoral: normal Popliteal: normal Calf Veins: normal IMPRESSION: No sonographic evidence for left lower extremity deep venous thrombosis. Electronically signed by: Estrella Traore MD 03/07/2024 04:05 AM [facility] Z9 Due to temporary technical issues with the PACS/Power scribe reporting system, reports are being signed by the in-house radiologist without review as a courtesy to ensure prompt reporting the interpreting radiologist is fully responsible for the content of the report. Transcribed Date/Time: 03/07/2024 4:08 AM
[2024-03-07] MEDS ORDERED: ASPIRIN 325 MG TAB ONE (06:18)
--- NOTE | 2024-03-07 06:35 | ER ---
Nurse's Notes [facility] Name: William Garza Age: 58 yrs Sex: Male : 1965 Arrival Date: 03/07/2024 Time: 02:24 Bed 5 Private MD: Diagnosis: Pain in left foot;Claudication;Peripheral vascular disease, unspecified Presentation: 03/07 02:52 Chief complaint: Patient states: c/o L foot pain since last night, denies any injuries. al5 Coronavirus screen: At this time, the client does not indicate any symptoms associated with coronavirus-19. Ebola Screen: No symptoms or risks identified at this time. Initial Sepsis Screen: Does the patient meet any 2 criteria? No. Patient's initial sepsis screen is negative. Does the patient have a suspected source of infection? No. Patient's initial sepsis screen is negative. Risk Assessment: Do you want to hurt yourself or someone else? Patient reports no desire to harm self or others. Onset of symptoms was March 06, 2024. 02:52 Method Of Arrival: Wheelchair al5 02:52 Acuity: COLT 3 al5 Triage Assessment: 02:55 General: Appears in no apparent distress. uncomfortable, Behavior is calm, cooperative. al5 Pain: Complains of pain in left foot Pain currently is 10 out of 10 on a pain scale. EENT: No signs and/or symptoms were reported regarding the EENT system. Neuro: Level of Consciousness is awake, alert, obeys commands, Oriented to person, place, time, situation. Cardiovascular: Reports pain in L foot Capillary refill is > 3 seconds in left toes skin cool to touch. Pulses are all present. Respiratory: Airway is patent Respiratory effort is even, unlabored, Respiratory pattern is regular, symmetrical. GI: No signs and/or symptoms were reported involving the gastrointestinal system. : No signs and/or symptoms were reported regarding the genitourinary system. Derm: Skin is intact, is healthy with good turgor, Skin is pink, warm \T\ dry. normal. Musculoskeletal: No signs and/or symptoms reported regarding the musculoskeletal system. Historical: - Allergies: 03:55 No Known Allergies; al5 - PMHx: 03:55 Hypertensive disorder; al5 - PSHx: 03:55 None; al5 - Immunization history:: Adult Immunizations up to date. - Infectious Disease History:: Denies. - Family history:: not pertinent. - Hospitalizations: : No recent hospitalization is reported. - Social history:: Smoking status: Patient denies any tobacco usage or history of. Screenin:56 [facility] ED Fall Risk Assessment (Adult) History of falling in the last 3 months, al5 including since admission No falls in past 3 months (0 pts) Confusion or Disorientation No (0 pts) Intoxicated or Sedated No (0 pts) Impaired Gait Yes (1 pt) Mobility Assist Device Used Yes (1 pt) Altered Elimination No (0 pt) Score/Fall Risk Level 0 - 2 = Low Risk Oriented to surroundings, Maintained a safe environment, Hourly rounding (assess needs \T\ fall precautionary measures) done. Abuse screen: Denies threats or abuse. Denies injuries from another. Nutritional screening: No deficits noted. Tuberculosis screening: No symptoms or risk factors identified. Assessment: 02:56 Reassessment: see triage assessment. al5 03:55 Reassessment: Patient appears in no apparent distress at this time. No changes from al5 previously documented assessment. Patient and/or family updated on plan of care and expected duration. Pain level reassessed. Patient is alert, oriented x 3, equal unlabored respirations, skin warm/dry/pink. denies any chest pain, shortness of breath, dizziness, blurred vision, or lightheadedness. 04:53 Reassessment: Patient appears in no apparent distress at this time. No changes from al5 previously documented assessment. Patient and/or family updated on plan of care and expected duration. Pain level reassessed. Patient is alert, oriented x 3, equal unlabored respirations, skin warm/dry/pink. pain decreased from 10/10 to 8/10. 05:23 Reassessment: Patient appears in no apparent distress at this time. Patient and/or al5 family updated on plan of care and expected duration. Pain level reassessed. Patient is alert, oriented x 3, equal unlabored respirations, skin warm/dry/pink. states pain is increasing, MD notified and orders placed at this time. 06:15 Reassessment: Patient appears in no apparent distress at this time. No changes from al5 previously documented assessment. Patient and/or family updated on plan of care and expected duration. Pain level reassessed. Patient is alert, oriented x 3, equal unlabored respirations, skin warm/dry/pink. 06:48 Reassessment: Patient appears in no apparent distress at this time. No changes from al5 previously documented assessment. Patient and/or family updated on plan of care and expected duration. Pain level reassessed. Patient is alert, oriented x 3, equal unlabored respirations, skin warm/dry/pink. patient given BP meds prior to discharge. patient instructed to take BP at home and if BP is still elevated, then to take his at home BP medication. patient verbalized understanding by verbalizing instructions back to this nurse. patient educated on prescriptions that patient is being sent home with. Vital Signs: 02:45 BP 181 / 106; Pulse 85; Resp 18; Pulse Ox 98% on R/A; al5 02:52 BP 177 / 110; Pulse 82; Resp 18; Temp 99.1; Pulse Ox 97% on R/A; Weight 63.05 kg (M); al5 Height 5 ft. 2 in. ; Pain 10/10; 03:00 BP 159 / 108; Pulse 85; Resp 16; Pulse Ox 97% on R/A; al5 03:30 BP 155 / 104; Pulse 80; Resp 15; Pulse Ox 95% on R/A; al5 04:00 BP 178 / 112; Pulse 75; Resp 19; Pulse Ox 97% on R/A; al5 04:30 BP 178 / 114; Pulse 77; Resp 17; Pulse Ox 97% on R/A; al5 05:00 BP 181 / 108; Pulse 80; Resp 19; Pulse Ox 96% on R/A; al5 05:30 BP 184 / 116; Pulse 81; Resp 19; Pulse Ox 96% on R/A; al5 06:00 BP 194 / 120; Pulse 80; Resp 23; Pulse Ox 97% on R/A; al5 06:50 BP 177 / 113; Pulse 83; Resp 16; Pulse Ox 98% on R/A; al5 02:52 Body Mass Index 25.42 (63.05 kg, 157.48 cm) al5 02:52 Pain Scale: Adult al5 02:45 patient asymptomatic htn al5 03:00 patient asymptomatic htn al5 03:30 patient asymptomatic htn al5 04:00 patient asymptomatic htn al5 04:30 patient asymptomatic htn al5 05:00 patient asymptomatic htn al5 05:30 patient asymptomatic htn al5 06:00 patient asymptomatic htn al5 ED Course: 02:33 Patient arrived in ED. gm2 02:34 Martinez Lockhart MD is Attending Physician. rn 02:52 Adrianna Campos, MARTHA is Primary Nurse. al5 02:55 Triage completed. al5 02:56 Arm band placed on right wrist. Patient placed in the treatment room, on a stretcher. al5 02:57 Patient has correct armband on for positive identification. Placed in gown. Bed in low al5 position. Call light in reach. Side rails up X2. Provided Education on: plan of care. 02:57 No provider procedures requiring assistance completed. al5 03:04 Inserted saline lock: 20 gauge in left forearm, using aseptic technique. Blood al5 collected. Flushed with 10 mL NS. 03:31 Extremity Venous Uni Ltd US In Process Unspecified. EDMS 03:31 Lower Extremity Artery Uni Ltd US In Process Unspecified. EDMS 06:50 IV discontinued, intact, bleeding controlled, No redness/swelling at site. Pressure al5 dressing applied. Administered Medications: 03:51 Drug: morphine IVP or IV 4 mg IVP once over 4 mins Route: IVP; Infused Over: 4 mins; al5 Site: left forearm; 04:47 Follow up: Response: pain decreased from 10 to 8 al5 05:25 Follow up: Response: No adverse reaction al5 03:51 Drug: Ondansetron IVP 4 mg IVP once; over 2 minutes Route: IVP; Site: left forearm; al5 05:25 Follow up: Response: No adverse reaction al5 05:31 Drug: morphine IVP or IV 4 mg IVP once over 4 mins Route: IVP; Infused Over: 4 mins; al5 Site: left forearm; 06:14 Follow up: Response: No adverse reaction; Pain is unchanged, physician notified al5 06:20 Drug: Aspirin PO 325 mg PO once Route: PO; al5 06:35 Follow up: Response: No adverse reaction al5 06:46 Drug: cloNIDine PO 0.1 mg PO once Route: PO; cp4 06:48 Follow up: Response: No adverse reaction; Medication administered at discharge. al5 Medication: 02:56 VIS not applicable for this client. al5 Outcome: 06:34 Discharge ordered by . rn 06:50 Discharged to home ambulatory, al5 06:50 Condition: unchanged 06:50 Discharge instructions given to patient, Instructed on discharge instructions, follow up and referral plans. medication usage, Demonstrated understanding of instructions, follow-up care, medications, Prescriptions given X 2, 06:52 Patient left the ED. al5 Signatures: Dispatcher [employer] EDMS Martinez Lockhart MD MD rn Potter, Christina 4 Mindy Gray 2 Adrianna Campos RN RN al5 Corrections: (The following items were deleted from the chart) 03:55 03:55 PMHx: None; al5 al5 05:24 04:53 Reassessment: Patient appears in no apparent distress at this time. No changes al5 from previously documented assessment. Patient and/or family updated on plan of care and expected duration. Pain level reassessed. Patient is alert, oriented x 3, equal unlabored respirations, skin warm/dry/pink. pain decreased from 10/10 to 8/10. MD notified, awaiting orders al5 05:24 05:23 Reassessment: Patient appears in no apparent distress at this time. Patient al5 and/or family updated on plan of care and expected duration. Pain level reassessed. Patient is alert, oriented x 3, equal unlabored respirations, skin warm/dry/pink. states pain is increasing, orders placed at this time al5 06:51 06:50 BP 177 / 110; Pulse 83bpm; Resp 16bpm; Pulse Ox 98% RA; al5 al5 06:52 03:55 Reassessment: Patient appears in no apparent distress at this time. No changes al5 from previously documented assessment. Patient and/or family updated on plan of care and expected duration. Pain level reassessed. Patient is alert, oriented x 3, equal unlabored respirations, skin warm/dry/pink. al5
--- NOTE | 2024-03-07 06:35 | EDPHYS ---
Physician Documentation [facility] Name: William Garza Age: 58 yrs Sex: Male : 1965 Arrival Date: 03/07/2024 Time: 02:24 Bed 5 Private MD: ED Physician Martinez Lockhart HPI: 03/07 02:51 This 58 yrs old Male presents to ER via Unassigned with complaints of Foot rn Pain. 02:51 The patient presents with pain. The complaints affect the left foot. Onset: The rn symptoms/episode began/occurred yesterday. Modifying factors: The symptoms are alleviated by nothing, the symptoms are aggravated by nothing. Severity of symptoms: At their worst the symptoms were moderate, in the emergency department the symptoms are unchanged. The patient has not experienced similar symptoms in the past. The patient has not recently seen a physician. Patient reports 1 day of left foot pain. Reports pain to the bottom of the left foot. Denies injury. No fever or chills. Reports burning and pain along with numbness. Has never felt this before. Denies symptoms in the right foot. No pain in calf or upper leg.. Historical: - Allergies: 03:55 No Known Allergies; al5 - PMHx: 03:55 Hypertensive disorder; al5 - PSHx: 03:55 None; al5 - Immunization history:: Adult Immunizations up to date. - Infectious Disease History:: Denies. - Family history:: not pertinent. - Hospitalizations: : No recent hospitalization is reported. - Social history:: Smoking status: Patient denies any tobacco usage or history of. ROS: 02:51 Constitutional: Negative for fever, chills, and weight loss, Cardiovascular: Negative rn for chest pain, palpitations, and edema, Respiratory: Negative for shortness of breath, cough, wheezing, and pleuritic chest pain, Abdomen/GI: Negative for abdominal pain, nausea, vomiting, diarrhea, and constipation, MS/Extremity: Positive for pain and tingling to left foot Skin: Negative for injury, rash, and discoloration, Neuro: Negative for headache, weakness, and seizure, Exam: 02:51 Constitutional: This is a well developed, well nourished patient who is awake, alert, rn and in no acute distress. Cardiovascular: Regular rate and rhythm . No pulse deficits. Respiratory: No increased work of breathing, no retractions or nasal flaring. Abdomen/GI: Soft, non-tender MS/ Extremity: No cyanosis but left foot is cold and poor capillary refill. Difficult to appreciate dorsalis pedis pulse. No calf tenderness. Absence of hair bilateral lower extremities. Muscle wasting noted on left leg compared to right leg Vital Signs: 02:45 BP 181 / 106; Pulse 85; Resp 18; Pulse Ox 98% on R/A; al5 02:52 BP 177 / 110; Pulse 82; Resp 18; Temp 99.1; Pulse Ox 97% on R/A; Weight 63.05 kg (M); al5 Height 5 ft. 2 in. ; Pain 10/10; 03:00 BP 159 / 108; Pulse 85; Resp 16; Pulse Ox 97% on R/A; al5 03:30 BP 155 / 104; Pulse 80; Resp 15; Pulse Ox 95% on R/A; al5 04:00 BP 178 / 112; Pulse 75; Resp 19; Pulse Ox 97% on R/A; al5 04:30 BP 178 / 114; Pulse 77; Resp 17; Pulse Ox 97% on R/A; al5 05:00 BP 181 / 108; Pulse 80; Resp 19; Pulse Ox 96% on R/A; al5 05:30 BP 184 / 116; Pulse 81; Resp 19; Pulse Ox 96% on R/A; al5 06:00 BP 194 / 120; Pulse 80; Resp 23; Pulse Ox 97% on R/A; al5 06:50 BP 177 / 113; Pulse 83; Resp 16; Pulse Ox 98% on R/A; al5 02:52 Body Mass Index 25.42 (63.05 kg, 157.48 cm) al5 02:52 Pain Scale: Adult al5 02:45 patient asymptomatic htn al5 03:00 patient asymptomatic htn al5 03:30 patient asymptomatic htn al5 04:00 patient asymptomatic htn al5 04:30 patient asymptomatic htn al5 05:00 patient asymptomatic htn al5 05:30 patient asymptomatic htn al5 06:00 patient asymptomatic htn al5 MDM: 02:34 Medical Screening Exam initiated rn 05:29 ED course: Still no radiology read of arterial ultrasound, contacted virtual doctor of radiology to expedite read. . 06:28 Differential diagnosis: gout, DVT, peripheral arterial disease, arterial insufficiency, rn claudication, rest pain. Data reviewed: vital signs, nurses notes, lab test result(s), radiologic studies, doppler, and as a result, I will discharge patient. Counseling: I had a detailed discussion with the patient and/or guardian regarding the historical points, exam findings, and any diagnostic results supporting the discharge/admit diagnosis, lab results, radiology results, the need for outpatient follow up, to return to the emergency department if symptoms worsen or persist or if there are any questions or concerns that arise at home. Special discussion: I discussed with the patient/guardian in detail that at this point there is no indication for admission to the hospital. It is understood, however, that if the symptoms persist or worsen the patient needs to return immediately for re-evaluation. Based on the history and exam findings, there is no indication for further emergent testing or inpatient evaluation. Vascular surgery. ED course: Patient with cold foot but monophasic flow on ultrasound. No obstruction. No indication for emergent admission or transfer for vascular evaluation but I feel that he is suffering from claudication. Patient is a long-term smoker, noncompliant with blood pressure medication. Recommend smoking cessation and increased compliance with blood pressure medication as well as outpatient vascular surgery follow-up as may benefit from bypass soon. Return precautions given and understood. Recommend daily aspirin for now.. 03/07 02:48 Order name: CBC with Diff; Complete Time: 03:37 rn 03/07 02:48 Order name: Basic Metabolic Panel; Complete Time: 03:37 rn 03/07 02:48 Order name: Protime (+inr); Complete Time: 03:37 rn 03/07 02:48 Order name: Ptt, Activated; Complete Time: 03:37 rn 03/07 02:48 Order name: Extremity Venous [place] ; Complete Time: 04:44 rn 03/07 02:48 Order name: Lower Extremity Artery [place] rn 03/07 02:48 Order name: IV Start; Complete Time: 03:19 rn Administered Medications: 03:51 Drug: morphine IVP or IV 4 mg IVP once over 4 mins Route: IVP; Infused Over: 4 mins; al5 Site: left forearm; 04:47 Follow up: Response: pain decreased from 10 to 8 al5 05:25 Follow up: Response: No adverse reaction al5 03:51 Drug: Ondansetron IVP 4 mg IVP once; over 2 minutes Route: IVP; Site: left forearm; al5 05:25 Follow up: Response: No adverse reaction al5 05:31 Drug: morphine IVP or IV 4 mg IVP once over 4 mins Route: IVP; Infused Over: 4 mins; al5 Site: left forearm; 06:14 Follow up: Response: No adverse reaction; Pain is unchanged, physician notified al5 06:20 Drug: Aspirin PO 325 mg PO once Route: PO; al5 06:35 Follow up: Response: No adverse reaction al5 06:46 Drug: cloNIDine PO 0.1 mg PO once Route: PO; cp4 06:48 Follow up: Response: No adverse reaction; Medication administered at discharge. al5 Disposition Summary: 03/07/24 06:34 Discharge Ordered Notes: Location: Home rn Problem: new rn Symptoms: have improved rn Condition: Stable rn Diagnosis - Pain in left foot rn - Claudication rn - Peripheral vascular disease, unspecified rn Followup: rn - With: Private Physician - When: As needed - Reason: Recheck today's complaints, Re-evaluation by your physician Discharge Instructions: - Discharge Summary Sheet rn - Intermittent Claudication rn - Neuropathic Pain rn - Peripheral Vascular Disease rn - Foot Pain rn Forms: - Medication Reconciliation Form rn - Antibiotic international affairs vice president - Prescription Opioid Use rn - Patient Portal Instructions rn - Leadership Thank You Letter rn Prescriptions: - gabapentin 100 mg Oral capsule - take 1 capsule ORAL route once As needed; 14 capsule; Refills: 0, Product rn Selection Permitted - Tramadol 50 mg Oral Tablet - take 1 tablet ORAL route every 8 hours as needed; 12 tablet; Refills: 0, rn Product Selection Permitted Signatures: Dispatcher [employer] EDMS Martinez Lockhart MD MD rn Potter, Christina cp4 Adrianna Campos RN RN al5 Corrections: (The following items were deleted from the chart) 02:49 02:49 Extremity Venous [employer][email or web address] ordered. EDMS EDMS 02:49 02:49 Lower Extremity Artery [employer][email or web address] ordered. EDMS EDMS 03:55 03:55 PMHx: None; al5 al5
[2024-03-07] MEDS ORDERED: cloNIDine HCL 0.1 MG TAB ONE (06:37)
[2024-03-07 07:18] VITALS: TEMP 99.1
[2024-03-07 07:32] VITALS: BP 177/113; O2SAT 98
--- NOTE | 2024-03-07 08:49 | RAD REPORT ---
PROCEDURE: US Duplex Left Lower Extremity Arteries CLINICAL INDICATION: The patient is 58 years old and is Male; PAIN Bed Name: 5 TECHNIQUE: Real-time duplex ultrasound scan of the left lower extremity arteries integrating B-mode two-dimensio nal vascular structure, Doppler spectral analysis and color flow Doppler imaging. COMPARISON: No relevant prior studies available. FINDINGS: LEFT COMMON FEMORAL ARTERY: No acute findings. Normal waveform. Peak systolic velocity in the left common femoral artery is 96 cm/s. LEFT SUPERFICIAL FEMORAL ARTERY: No acute findings. Normal waveform. Peak systolic velocity in the left superficial femoral artery is 70 cm/s. LEFT POPLITEAL ARTERY: No acute findings. Normal waveform. Peak systolic velocity in the left popliteal artery is 31 cm/s. LEFT CALF/FOOT ARTERIES: No acute findings. Normal waveform. Peak systolic velocity in the left posterior tibial artery is 47 cm/s. Peak systolic velocity in the left dorsalis pedis artery is 35 cm/s. SOFT TISSUES: Unremarkable IMPRESSION: No hemodynamically significant stenosis or occlusion identified in the left lower extremity arteries. Electronically signed by: Porfirio Chang MD 03/07/2024 06:24 AM [facility] Transcribed Date/Time: 03/07/2024 8:49 AM
== END 2024-03-07 06:52 | disposition home or self-care (01) ==
LOC: ER 02:24
DX: I73.9 Peripheral vascular disease, unspecified (principal)
CPT/HCPCS: 36415; 80048; 85025; 85610; 85730; 93926; 93971; 96374; 96375; 99284; J2405